=== PATIENT | female | born 1950 | race Caucasian/White ===

== ENCOUNTER 2024-09-19 19:02 | Inpatient (IN) | payer MEDICARE, OTHER, SELFPAY ==
[2024-09-19 14:26] LABS: ALT (SGPT) 28 U/L (0-35); AST (SGOT) 36 U/L (14-36); Albumin 4.1 g/dl (3.5-5.0); Alkaline Phosphatase 87 U/L (38-126); Blood Urea Nitrogen 57 mg/dl (7-17); Calcium 9.1 mg/dl (8.4-10.2); Carbon Dioxide 32 mmol/L (22-30); Chloride 94 mmol/L (98-107); Glucose 168 mg/dl (70-99); Potassium 5.1 mmol/L (3.5-5.1); Sodium 134 mmol/L (135-145); Total Bilirubin 0.8 mg/dl (0.2-1.3); Total Protein 6.4 g/dl (6.3-8.2); eGFR 33.42
[2024-09-19 14:35] LABS: Hematocrit 42.3 % (37.0-47.0); Hemoglobin 12.8 g/dL (12.0-16.0); Mean Corp Hgb Conc. 30.3 g/dL (33.0-37.0); Mean Corpuscular Hgb 29.3 pg (27.0-31.0); Mean Corpuscular Volume 96.8 fL (81.0-99.0); Mean Platelet Volume 12.3 fL (7.4-10.4); Platelet Count 222 10^3/uL (130-400); Red Blood Cell Count 4.37 10^6/uL (4.20-5.40); Red Cell Dist. Width 18.6 % (11.5-14.5)
[2024-09-19 14:36] LABS: White Blood Cell Count 44.8 10^3/uL (4.8-10.8)
[2024-09-19 14:43] LABS: Troponin I 0.137 ng/ml
[2024-09-19 14:51] VITALS: BP 103/67
[2024-09-19 15:00] VITALS: BP 114/78
--- NOTE | 2024-09-19 15:07 | ED.GENMED ---
History of Present Illness
<Ashish Ahmadi PA-C - Last Filed: 09/19/24 17:36>
General
Chief Complaint: Chest Pain
Source: patient
Exam Limitations: none
Time Seen by Provider: 09/19/24 14:41
History of Present Illness
History of Present Illness:
73-year-old female with history of COPD, CHF lung cancer requiring left lung removal presents with right-sided chest pain and shortness of breath. Pain is rated worse with deep breathing. Typically on 2 L of oxygen. She denies fever. No vomiting
or fever. She is on Eliquis. She has not missed any doses. She notes some leg swelling. She also notes she has been on 20 mg of prednisone daily. No measurable fever. No other complaints at this time
Phy Exam
<Ashish Ahmadi PA-C - Last Filed: 09/19/24 17:36>
Physical Exam
Physical Exam:
General: Well-developed female with increased work of breathing
HEENT: Normocephalic atraumatic
Heart: Regular rate and rhythm
Lungs: No breath sounds on the left side. No obvious wheeze on the right
Abdomen is soft nontender nondistended no guarding rebound normal bowel sounds
Extremities: Edema noted bilateral lower extremities
Skin is warm no rash
Scores
<Ashish Ahmadi PA-C - Last Filed: 09/19/24 17:36>
Heart Score for Chest Pain Patients
STEMI patient?: No
History: Slightly or Non-Suspicious
ECG: Normal
Age: >/= 65 years
Risk Factors: 1 or 2 Risk Factors
Troponin: >/= 3 x Normal Limit
Heart Score for Chest Pain Patients: 5
Heart Score Risk: 20.3% MACE over next 6 weeks
<Vishal Briones DO - Last Filed: 09/19/24 21:54>
Heart Score for Chest Pain Patients
Heart Score for Chest Pain Patients: 5
Heart Score Risk: 20.3% MACE over next 6 weeks
Course
<Ashish Ahmadi PA-C - Last Filed: 09/19/24 17:36>
Orders/Labs/Results
Orders:
Orders
09/19/24 13:40
ECG [Electrocardiogram (*1)] Urgent
Reason for Study: Chest Pain
EKG- Treatment ONCE
09/19/24 13:53
Complete Blood Count/With Diff Urgent
Comprehensive Metabolic Panel Urgent
Magnesium Urgent
Comment: ADD ON
NT-proBNP Urgent
Comment: ADD ON
Troponin I Urgent
09/19/24 14:59
CR Chest Portable - 1 View Urgent
Comment:
Reason For Exam: sob, chest pain
Reason Study Needs to be Portable: Patient Unstable
09/19/24 Dinner
Cholesterol Lowering
At Your Request: Full Participation
Fluid Restriction: 1200 mL/day (40 oz)
Cholesterol Lowering: Sodium, 2 Gram
09/19/24 15:27
Cefepime HCl [Maxipime] 2,000 mg IV NOW STA
Vancomycin [Vancocin] 2,000 mg 0.9% Sodium Chloride 500 ml [Nss] 500 ml IV NOW
09/19/24 15:37
COVID-19 Antigen Urgent
Source: Nasal Swab
Blood Culture Q30M
ZHAO Source: Blood/Venous
Specimen Description:
Influenza A+B Rapid Molecular Urgent
ZHAO Source: Nasal Swab
Specimen Description:
09/19/24 17:29
Lactic Acid Q4H
Comment: CANCEL 2nd LACTIC ACID IF 1st LACTIC ACID IS LESS THAN 2
09/19/24 17:58
Add On- LAB Urgent
Tests Added?: magnesium
09/19/24 18:38
Admit/Transfer Patient As Directed
Co-Sign Provider:
Level of Care: Inpatient admission
Assign to:: Telemetry
Physician / Group: florencia cisneros
Diagnosis: sepsis 2/2 RLL pna,R cp 2/2 pna, chf non isch miinjury
Reason for Telemetry: Chest Pain syndromes
Date to Stop Telemetry: 09/21/24
Time to Stop Telemetry: 11:00
Reason for Hospitalization: sepsis 2/2 RLL pna,R cp 2/2 pna, chf non isch miinjury
Expected length of stay greater than two midnights?: Yes
ELOS- Estimated Length of Stay in days: 5
I certify the patient meets the requirements for IP care: Yes
09/19/24 18:43
Code Status As Directed
Resuscitation Status: Full Code
09/19/24 18:50
PRN Pain Medication Management As Directed
May give lesser potent ordered pain med per pt: Yes
preference::
Protocol:: Medication orders for pain may be administered in a
manner that supports deferring to patient preference
when the pt is:
- Requesting an ordered lesser potent pain medication.
Least to most potent pain medications are defined
as: acetaminophen < NSAID < tramadol < opioids
(morphine, oxycodone, hydromorphone).
- Requesting a lesser dose of the same medication IF
ORDERED.
- Requesting a less intrusive route of administration
if both routes are prescribed by the provider (PO <
IV).
09/19/24 18:55
CARDIOLOGY CONSULT Routine
Consulting Provider: David Calle
Was physician already notified: Yes
Reason for consult: chf
09/19/24 19:05
Troponin I Urgent
Blood Culture Q30M
ZHAO Source: Blood/Venous
Specimen Description:
09/19/24 19:52
Acetaminophen [Tylenol] 650 mg PO Q4HPRN PRN
Albuterol [ProAIR HFA INHALER] 2 puff INH R Q4HPRN PRN
Bisacodyl [Dulcolax] 10 mg RECTAL [id number] PRN
Docusate W/Senna [Senokot-S] 1 tablet PO BIDPRN PRN
Ipratropium/Albuterol Sulfate [Duoneb] 3 ml INH R Q4HPRN PRN
Lorazepam [Ativan] 0.5 mg PO BIDPRN PRN
Ondansetron HCl [Zofran] 4 mg PO Q6HPRN PRN
Polyethylene Glycol Powder [Miralax] 17 grams PO DAILYPRN PRN
VANCOMYCIN Pharmacy to Dose [VANCOCIN Pharmacy to Dose] 1 each Pharmacy To Prepare [Call Pharmacy To Prepare] 0 ml IV PER PROTOCOL
09/19/24 19:52
VTE Contraindication Routine
VTE Mechanical Device Contraindication: Medical Contraindication
Pharmocologic Contraindication: Medical Contraindication
Comment: Patient on Eliquis 2.5 mg twice daily
Activity As Directed
Activity Level: With Assistance
Comment: Uses cane
Intake/ Output As Directed
Frequency: Per unit guidelines
Vital Signs As Directed
Frequency: Per unit guidelines
Weight As Directed
Frequency: Daily
O2 Therapy [RESP] Routine
Nasal Cannula Liter Flow: 2 LPM
Titrate/Wean O2 to maintain O2 sat greater than (%): 91
Special Instructions: Patient on chronic 2 L nasal cannula dependent
Pulse Ox/spot Check [RESP] Routine
Quantity: 1
Ot Eval And Treat Routine
Pt Eval And Treat Routine
Activity Level: With Assistance
09/19/24 19:55
Benzonatate [Tessalon Perles] 200 mg PO TIDPRN PRN
09/19/24 20:00
Apixaban [Eliquis] 2.5 mg PO BID
Baclofen [Lioresal] 5 mg PO BID
09/19/24 22:00
Nystatin Suspension [Mycostatin Oral Suspension] 5 ml PO QID
Pramipexole [Mirapex, Generic] 1 mg PO HS
Pramipexole [Mirapex] 0.25 mg PO HS
Pregabalin [Lyrica] 75 mg PO HS
09/20/24 00:00
EKG [Electrocardiogram (*1)] Urgent
Reason for Study: Chest Pain
Troponin I Urgent
09/20/24 04:00
Cefepime HCl [Maxipime] 1,000 mg IV Q12H
09/20/24 06:00
Echo 2D MMode Color/Doppler IN AM
Reason for Study: chf
Complete Blood Count/With Diff IN AM
Comprehensive Metabolic Panel IN AM
Vitamin B12 IN AM
09/20/24 08:00
Allopurinol [Zyloprim] 200 mg PO DAILY
Atorvastatin [Lipitor] 20 mg PO DAILY
Budesonide/Formoterol 160/4.5 [Symbicort 160/4.5 Mcg Inhaler] 2 puff INH R BID
Dapagliflozin [Farxiga] 10 mg PO DAILY
Famotidine [Pepcid] 20 mg PO DAILY
Furosemide [Lasix] 40 mg PO Q48H
Magnesium l-Lactate [Mag-Tab Sr] 84 mg PO BID
Montelukast Sodium [Singulair] 10 mg PO DAILY
Pantoprazole [Protonix] 40 mg PO DAILY
Prednisone [Deltasone] 20 mg PO DAILY
Pregabalin [Lyrica] 50 mg PO DAILY
Roflumilast [Daliresp] 500 mcg PO DAILY
Saccharomyces Boulardii [Florastor] 250 mg PO DAILY
Tiotropium [place] 2.5 Mcg [Spiriva Respimat 2.5 Mcg] 2 puff INH R DAILY
09/20/24 22:00
suvorexant [Belsomra] 10 mg PO HS
09/21/24 06:00
Complete Blood Count/With Diff IN AM
Comprehensive Metabolic Panel IN AM
09/21/24 08:00
Furosemide [Lasix] 80 mg PO Q48H
Prednisone [Deltasone] 10 mg PO DAILY
09/21/24 11:00
DC Protocol for Telemetry ONCE
09/22/24 06:00
Complete Blood Count/With Diff IN AM
Comprehensive Metabolic Panel IN AM
09/23/24 06:00
Complete Blood Count/With Diff IN AM
Comprehensive Metabolic Panel IN AM
Abnormal Lab Results
09/19/24
13:53
WBC 44.8 H* 10^3/uL
(4.8-10.8)
MCHC 30.3 L g/dL
(33.0-37.0)
RDW 18.6 H %
(11.5-14.5)
MPV 12.3 H fL
(7.4-10.4)
Abs Immat Gran (auto) 1.1 H 10^3/uL
(0-0.05)
Absolute Neuts (auto) 39.4 H 10^3/uL
(1.4-6.5)
Absolute Lymphs (auto) 0.8 L 10^3/uL
(1.2-3.4)
Absolute Monos (auto) 3.3 H 10^3/uL
(0.1-0.6)
Immature Gran % 2.4 H %
(0-0.5)
Neutrophils % 88.1 H %
(42.2-75.2)
Lymphocytes % 1.8 L %
(20.5-51.1)
Sodium 134 L mmol/L
(135-145)
Chloride 94 L mmol/L
(98-107)
Carbon Dioxide 32 H mmol/L
(22-30)
BUN 57 H mg/dl
(7-17)
Creatinine 1.6 H mg/dL
(0.6-1.0)
Glucose 168 H mg/dl
(70-99)
Magnesium 2.7 H mg/dl
(1.6-2.3)
Troponin I 0.137 H* ng/ml
09/19/24 13:53
09/19/24 13:53
Vital Signs
Initial and Last Documented VS:
Initial Vital Signs
Pulse Resp Pulse Ox
87 16 96
09/19/24 13:40 09/19/24 13:40 09/19/24 13:40
Last Documented Vital Signs
Temp Pulse Resp BP Pulse Ox
97.6 F 89 8 162/81 96
09/19/24 20:06 09/19/24 20:06 09/19/24 20:06 09/19/24 20:06 09/19/24 20:06
<Vishal Briones, DO - Last Filed: 09/19/24 21:54>
Orders/Labs/Results
Orders:
Orders
09/19/24 13:40
ECG [Electrocardiogram (*1)] Urgent
Reason for Study: Chest Pain
EKG- Treatment ONCE
09/19/24 13:53
Complete Blood Count/With Diff Urgent
Comprehensive Metabolic Panel Urgent
Magnesium Urgent
Comment: ADD ON
NT-proBNP Urgent
Comment: ADD ON
Troponin I Urgent
09/19/24 14:59
CR Chest Portable - 1 View Urgent
Comment:
Reason For Exam: sob, chest pain
Reason Study Needs to be Portable: Patient Unstable
09/19/24 Dinner
Cholesterol Lowering
At Your Request: Full Participation
Fluid Restriction: 1200 mL/day (40 oz)
Cholesterol Lowering: Sodium, 2 Gram
09/19/24 15:27
Cefepime HCl [Maxipime] 2,000 mg IV NOW STA
Vancomycin [Vancocin] 2,000 mg 0.9% Sodium Chloride 500 ml [Nss] 500 ml IV NOW
09/19/24 15:37
COVID-19 Antigen Urgent
Source: Nasal Swab
Blood Culture Q30M
ZHAO Source: Blood/Venous
Specimen Description:
Influenza A+B Rapid Molecular Urgent
ZHAO Source: Nasal Swab
Specimen Description:
09/19/24 17:29
Lactic Acid Q4H
Comment: CANCEL 2nd LACTIC ACID IF 1st LACTIC ACID IS LESS THAN 2
09/19/24 17:58
Add On- LAB Urgent
Tests Added?: magnesium
09/19/24 18:38
Admit/Transfer Patient As Directed
Co-Sign Provider:
Level of Care: Inpatient admission
Assign to:: Telemetry
Physician / Group: florencia cisneros
Diagnosis: sepsis 2/2 RLL pna,R cp 2/2 pna, chf non isch miinjury
Reason for Telemetry: Chest Pain syndromes
Date to Stop Telemetry: 09/21/24
Time to Stop Telemetry: 11:00
Reason for Hospitalization: sepsis 2/2 RLL pna,R cp 2/2 pna, chf non isch miinjury
Expected length of stay greater than two midnights?: Yes
ELOS- Estimated Length of Stay in days: 5
I certify the patient meets the requirements for IP care: Yes
09/19/24 18:43
Code Status As Directed
Resuscitation Status: Full Code
09/19/24 18:50
PRN Pain Medication Management As Directed
May give lesser potent ordered pain med per pt: Yes
preference::
Protocol:: Medication orders for pain may be administered in a
manner that supports deferring to patient preference
when the pt is:
- Requesting an ordered lesser potent pain medication.
Least to most potent pain medications are defined
as: acetaminophen < NSAID < tramadol < opioids
(morphine, oxycodone, hydromorphone).
- Requesting a lesser dose of the same medication IF
ORDERED.
- Requesting a less intrusive route of administration
if both routes are prescribed by the provider (PO <
IV).
09/19/24 18:55
CARDIOLOGY CONSULT Routine
Consulting Provider: David Calle
Was physician already notified: Yes
Reason for consult: chf
09/19/24 19:05
Troponin I Urgent
Blood Culture Q30M
ZHAO Source: Blood/Venous
Specimen Description:
09/19/24 19:52
Acetaminophen [Tylenol] 650 mg PO Q4HPRN PRN
Albuterol [ProAIR HFA INHALER] 2 puff INH R Q4HPRN PRN
Bisacodyl [Dulcolax] 10 mg RECTAL [id number] PRN
Docusate W/Senna [Senokot-S] 1 tablet PO BIDPRN PRN
Ipratropium/Albuterol Sulfate [Duoneb] 3 ml INH R Q4HPRN PRN
Lorazepam [Ativan] 0.5 mg PO BIDPRN PRN
Ondansetron HCl [Zofran] 4 mg PO Q6HPRN PRN
Polyethylene Glycol Powder [Miralax] 17 grams PO DAILYPRN PRN
VANCOMYCIN Pharmacy to Dose [VANCOCIN Pharmacy to Dose] 1 each Pharmacy To Prepare [Call Pharmacy To Prepare] 0 ml IV PER PROTOCOL
09/19/24 19:52
VTE Contraindication Routine
VTE Mechanical Device Contraindication: Medical Contraindication
Pharmocologic Contraindication: Medical Contraindication
Comment: Patient on Eliquis 2.5 mg twice daily
Activity As Directed
Activity Level: With Assistance
Comment: Uses cane
Intake/ Output As Directed
Frequency: Per unit guidelines
Vital Signs As Directed
Frequency: Per unit guidelines
Weight As Directed
Frequency: Daily
O2 Therapy [RESP] Routine
Nasal Cannula Liter Flow: 2 LPM
Titrate/Wean O2 to maintain O2 sat greater than (%): 91
Special Instructions: Patient on chronic 2 L nasal cannula dependent
Pulse Ox/spot Check [RESP] Routine
Quantity: 1
Ot Eval And Treat Routine
Pt Eval And Treat Routine
Activity Level: With Assistance
09/19/24 19:55
Benzonatate [Tessalon Perles] 200 mg PO TIDPRN PRN
09/19/24 20:00
Apixaban [Eliquis] 2.5 mg PO BID
Baclofen [Lioresal] 5 mg PO BID
09/19/24 22:00
Nystatin Suspension [Mycostatin Oral Suspension] 5 ml PO QID
Pramipexole [Mirapex, Generic] 1 mg PO HS
Pramipexole [Mirapex] 0.25 mg PO HS
Pregabalin [Lyrica] 75 mg PO HS
09/20/24 00:00
EKG [Electrocardiogram (*1)] Urgent
Reason for Study: Chest Pain
Troponin I Urgent
09/20/24 04:00
Cefepime HCl [Maxipime] 1,000 mg IV Q12H
09/20/24 06:00
Echo 2D MMode Color/Doppler IN AM
Reason for Study: chf
Complete Blood Count/With Diff IN AM
Comprehensive Metabolic Panel IN AM
Vitamin B12 IN AM
09/20/24 08:00
Allopurinol [Zyloprim] 200 mg PO DAILY
Atorvastatin [Lipitor] 20 mg PO DAILY
Budesonide/Formoterol 160/4.5 [Symbicort 160/4.5 Mcg Inhaler] 2 puff INH R BID
Dapagliflozin [Farxiga] 10 mg PO DAILY
Famotidine [Pepcid] 20 mg PO DAILY
Furosemide [Lasix] 40 mg PO Q48H
Magnesium l-Lactate [Mag-Tab Sr] 84 mg PO BID
Montelukast Sodium [Singulair] 10 mg PO DAILY
Pantoprazole [Protonix] 40 mg PO DAILY
Prednisone [Deltasone] 20 mg PO DAILY
Pregabalin [Lyrica] 50 mg PO DAILY
Roflumilast [Daliresp] 500 mcg PO DAILY
Saccharomyces Boulardii [Florastor] 250 mg PO DAILY
Tiotropium [place] 2.5 Mcg [Spiriva Respimat 2.5 Mcg] 2 puff INH R DAILY
09/20/24 22:00
suvorexant [Belsomra] 10 mg PO HS
09/21/24 06:00
Complete Blood Count/With Diff IN AM
Comprehensive Metabolic Panel IN AM
09/21/24 08:00
Furosemide [Lasix] 80 mg PO Q48H
Prednisone [Deltasone] 10 mg PO DAILY
09/21/24 11:00
DC Protocol for Telemetry ONCE
09/22/24 06:00
Complete Blood Count/With Diff IN AM
Comprehensive Metabolic Panel IN AM
09/23/24 06:00
Complete Blood Count/With Diff IN AM
Comprehensive Metabolic Panel IN AM
Abnormal Lab Results
09/19/24
13:53
WBC 44.8 H* 10^3/uL
(4.8-10.8)
MCHC 30.3 L g/dL
(33.0-37.0)
RDW 18.6 H %
(11.5-14.5)
MPV 12.3 H fL
(7.4-10.4)
Abs Immat Gran (auto) 1.1 H 10^3/uL
(0-0.05)
Absolute Neuts (auto) 39.4 H 10^3/uL
(1.4-6.5)
Absolute Lymphs (auto) 0.8 L 10^3/uL
(1.2-3.4)
Absolute Monos (auto) 3.3 H 10^3/uL
(0.1-0.6)
Immature Gran % 2.4 H %
(0-0.5)
Neutrophils % 88.1 H %
(42.2-75.2)
Lymphocytes % 1.8 L %
(20.5-51.1)
Sodium 134 L mmol/L
(135-145)
Chloride 94 L mmol/L
(98-107)
Carbon Dioxide 32 H mmol/L
(22-30)
BUN 57 H mg/dl
(7-17)
Creatinine 1.6 H mg/dL
(0.6-1.0)
Glucose 168 H mg/dl
(70-99)
Magnesium 2.7 H mg/dl
(1.6-2.3)
Troponin I 0.137 H* ng/ml
09/19/24 13:53
09/19/24 13:53
Vital Signs
Initial and Last Documented VS:
Initial Vital Signs
Pulse Resp Pulse Ox
87 16 96
09/19/24 13:40 09/19/24 13:40 09/19/24 13:40
Last Documented Vital Signs
Temp Pulse Resp BP Pulse Ox
97.6 F 89 8 162/81 96
09/19/24 20:06 09/19/24 20:06 09/19/24 20:06 09/19/24 20:06 09/19/24 20:06
Devanglt;Ashish Ahmadi PA-C - Last Filed: 09/19/24 17:36>
MDM/Problems Addressed
Differential Diagnosis Includes:
Patient with history of CHF, lung cancer requiring left lung removal COPD on a blood thinner presents with shortness of breath and right-sided pleuritic chest pain. She has been coughing.
Consider respiratory illness such as pneumonia or bronchitis for COPD flare versus ACS or PE but less likely to be PE secondary to anticoagulated state.
Portable chest x-ray ordered immediately after evaluating the patient which demonstrates opacity in the right lower lung suggestive of pneumonia. Patient is requiring 4 L of oxygen increased from a baseline of 2 L of oxygen. Review of labs
demonstrated leukocytosis with a white count of 44,000. Blood cultures and lactic acid ordered.
COVID and flu test pending. Patient is not currently receiving any treatment for lung cancer.
<Ashish Ahmadi PA-C - Last Filed: 09/19/24 17:36>
*Critical Care Note
Total Time (30-74mins, 75-104mins- exclusive of procedures): Not Applicable
<Ashish Ahmadi PA-C - Last Filed: 09/19/24 17:36>
Update Note
Update Note:
X-ray consistent with right middle and lower lobe pneumonia. Given increased oxygen demand leukocytosis elevated troponin will keep patient in hospital. Hospitalist made aware. Vancomycin and cefepime ordered
ED Attending Note
<Ashish Ahmadi PA-C - Last Filed: 09/19/24 17:36>
-
Portions of this chart may have been created with voice recognition software.� Occasional wrong word or��sound alike� substitutions may have occurred due to the inherent limitations of voice recognition software.
<Vishal Briones, - Last Filed: 09/19/24 21:54>
ED Attending Note
I performed the substantive portion of visit, reviewed & personally made and approve the management plan that is documented in note by myself or YOANA.: Yes
Discharge Plan
Departure
Patient Disposition: Admit
Date of Disposition: 09/19/24
Time of Disposition: 17:35
Presentation/result/management discussed w/ accepting MD/DO: Hospitalist
Discharge Problem:
Pneumonia
Interventions
Interventions:
*Risk Screen - Suicide Last Done: 09/19/24 21:32
*General Assessment Last Done: 09/19/24 17:03
*Neglect/Abuse Screening Last Done: 09/19/24 13:40
ED- Fall Risk Assessment Last Done: 09/19/24 17:03
*ED COVID-19 Vaccine History Last Done: 09/19/24 21:32
*Nursing Disposition Last Done: 09/19/24 19:40
ED- Cardiac Assessment Last Done: 09/19/24 17:03
Discharge Date and Time
Discharge Date/Time: 09/19/24 19:40
[2024-09-19 15:13] LABS: % Basophils 0.4 % (0-2); % Immature Granulocytes 2.4 % (0-0.5); % Lymphocytes 1.8 % (20.5-51.1); % Monocytes 7.3 % (1.7-9.3); % Neutrophils 88.1 % (42.2-75.2); Absolute Basophils 0.2 10^3/uL (0-0.2); Absolute Immature Granulocytes 1.1 10^3/uL (0-0.05); Absolute Lymphocytes 0.8 10^3/uL (1.2-3.4); Absolute Monocytes 3.3 10^3/uL (0.1-0.6); Absolute Neutrophils 39.4 10^3/uL (1.4-6.5); Nucleated Red Blood Cells % 0.1 %
[2024-09-19 15:25] VITALS: BMI 31.8
[2024-09-19 16:30] LABS: NT-proBNP 1750 pg/ml
[2024-09-19] MEDS: MAXIPIME 2000 MG IV (16:40)
[2024-09-19] MEDS: VANCOCIN 540 MG IV (16:55)
[2024-09-19 17:00] VITALS: BP 116/73
[2024-09-19 17:17] LABS: COVID-19 Antigen Negative (Negative)
--- NOTE | 2024-09-19 17:30 | HPS.HSE ---
Family Physician
-
Family Physician: Dre Jon
Chief Complaint
-
Shortness of breath, chest pain, cough, sore throat
History of Present Illness
73-year-old female complaining of right sided chest pain at rest 4/10 and with a deep breath 7 out of 10. She reports her shortness of breath feels worse over the past 2 to 3 days along with a nonproductive cough and sore throat with thrush to her
tongue and painful swallowing x 1 week. She was recently treated for radiation pneumonitis approximately 6 to 8 weeks ago at [facility] placed on high-dose steroids starting with 50 mg x 1 week 40 mg x 1 week 30 mg x 1 week to change
to 20 mg on 09/21/2024 then to decrease to 10 mg x 1 week and maintain. She also reports she had a 20 pound weight gain on steroids was 158 pounds approximately 6 to 8 weeks ago her Lasix was increased from 40 mg daily to alternating 40 mg
and 80 mg every other day. She is currently 81.5 kg which would be a 10 kg/21.3 LB weight gain from 6�8 weeks ago when she states she was 71.8 kg/158 LBS she reports pain is worse when she takes a deep breath. She has been on a tapering dose of
steroids starting 6 to 8 weeks ago with 50 mg x 1 week 40 mg in 1 week 30 mg x 1 week to decrease 10 mg by each week on Sundays. She is normally chronically on 10 mg of prednisone and on chronic 2 L nasal cannula. She denies fever, chills,
palpitations, cough, COELHO, orthopnea, abdominal pain, nausea, vomiting, diarrhea, urinary symptoms
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
oxygen, CAD status post cardiac stent 03/08/2023 [facility], Chronic CHF preserved EF, paroxysmal A-fib on Eliquis diagnosed February 2023 [facility], PACs, bradycardia 04/03/2023: HTN, orthostatic hypotension, gout, anxiety,
restless leg syndrome, chronic back pain, GERD, CKD 3, chronic anemia
Medical History
Past Medical History
Past Medical History: Reports Other
Additional Past Medical History:
hypertension
Lung cancer status post left pneumonectomy
COPD/ chronic respiratory failure on 2 L of oxygen
CAD status post cardiac stent 03/08/2023
Chronic CHF
Paroxysmal atrial fibrillation on Eliquis Dx March 18 [facility]
PACs, bradycardia 04/03/2023
GERD
CKD 3
gout
anxiety
restless leg syndrome
chronic back pain,
Past Surgical History: Reports None
Social History
Tobacco: Former Smoker
Alcohol: None
Drug: None
Personal: Single
Living: Alone
Family History
Family History: Not pertinent
Allergies / Home Medications
Allergies reflects when Allergies were last updated in [employer].
Home Medications with original date entered in [employer]
Allergy/Medication List:
Allergies
Allergy/AdvReac Type Severity Reaction Status Date / Time
amiodarone Allergy kidney and Verified 09/19/24 18:37
liver
functions
elevate
dofetilide Allergy prolonged Verified 09/19/24 18:37
qt
Iodinated Contrast Media Allergy Nausea / Verified 09/19/24 18:37
Vomiting/'pass
out'
levofloxacin [From Levaquin] Allergy Nausea Verified 09/19/24 13:45
Home Medications
allopurinol 100 mg tablet 200 mg PO DAILY Gout 03/30/23
atorvastatin 40 mg tablet 20 mg PO DAILY High Cholesterol 03/30/23
baclofen 5 mg tablet 5 mg PO BID Muscle Spasms 03/30/23
famotidine 20 mg tablet 20 mg PO DAILY Gastrointestinal Issue 03/30/23
ipratropium 0.5 mg-albuterol 3 mg (2.5 mg base)/3 mL nebulization soln 3 ml inhalation R Q4 PRN sob/wheezing 03/30/23
lorazepam 0.5 mg tablet 0.5 mg PO BIDPRN PRN anxiety 03/30/23
magnesium oxide 400 mg PO BID Electrolyte Repletion 03/30/23
omeprazole 40 mg capsule,delayed release 40 mg PO DAILY Gastrointestinal Issue 03/30/23
ondansetron HCl 4 mg tablet 4 mg PO Q6HPRN PRN nausea/vomitting 03/30/23
Saccharomyces boulardii 250 mg capsule (Florastor) 250 mg PO DAILY 09/19/24
albuterol sulfate 90 mcg/actuation aerosol inhaler 2 puff inhalation R Q4HPRN PRN wheezing 09/19/24
apixaban 2.5 mg tablet 2.5 mg PO BID 09/19/24
azithromycin 250 mg tablet 250 mg PO MOWEFR 09/19/24
benralizumab 30 mg/mL subcutaneous auto-injector (Fasenra Pen) 30 mg SC Q8W 09/19/24
benzonatate 200 mg capsule 200 mg PO TIDPRN PRN cough 09/19/24
calcium 600 mg (as carbonate)-vitamin D3 5 mcg (200 unit) tablet 1 tab PO DAILY 09/19/24
coenzyme Q10 200 mg/gram oral powder (H2Q CoQ10) 400 mg PO DAILY 09/19/24
dapagliflozin propanediol 10 mg tablet 10 mg PO DAILY 09/19/24
fluticasone furoate 200 mcg-vilanterol 25 mcg/dose inhalation powder (Breo Ellipta) 1 inh inhalation R DAILY 09/19/24
fluticasone propionate 50 mcg/actuation nasal spray,suspension 2 spray intranasal DAILY 09/19/24
furosemide 40 mg tablet 40 mg PO Q48H 09/19/24
furosemide 40 mg tablet 80 mg PO Q48H 09/19/24
ipratropium 20 mcg-albuterol 100 mcg/actuation mist for inhalation (Combivent Respimat) 1 puff inhalation R Q4HPRN PRN sob/wheezing 09/19/24
montelukast 10 mg tablet 10 mg PO DAILY 09/19/24
pramipexole 0.25 mg tablet 0.25 mg PO HS 09/19/24
pramipexole 1 mg tablet 1 mg PO HS 09/19/24
prednisone 10 mg tablet 10 mg PO DAILY 09/19/24
pregabalin 25 mg capsule 50 mg PO DAILY 09/19/24
pregabalin 25 mg capsule 75 mg PO HS 09/19/24
roflumilast 500 mcg tablet 500 mcg PO DAILY 09/19/24
spironolactone 25 mg tablet 25 mg PO DAILY 09/19/24
sulfamethoxazole 800 mg-trimethoprim 160 mg tablet 1 tab PO MOWEFR 09/19/24
suvorexant 10 mg tablet (Belsomra) 10 mg PO QPM 09/19/24
tiotropium bromide 2.5 mcg/actuation mist for inhalation (Spiriva Respimat) 2 puff inhalation R DAILY 09/19/24
Review of Systems
-
History Source: Patient
A 12 point ROS was completed and negative except as noted: Yes
Constitutional: Denies Fever, Fatigue or Chills
EENT: Reports Sore Throat and Other (Oral thrush)
Respiratory: Reports Cough (Nonproductive) and Trouble Breathing
Cardiac: Reports Chest Pain (Right side at rest and with inspiration); Denies Diaphoresis or Palpitations
Abdomen/GI: Denies Abdominal Pain, Nausea, Vomiting, Diarrhea, Constipated, Bloody Stools or Black Stools
: Denies Dysuria, Frequency, Flank Pain, Incontinence, Difficulty Voiding, Urgency or Dark Urine
Musculoskeletal: Reports Edema (+2 bilateral lower legs); Denies Joint Pain
Skin: Denies Itching or Rash
Neurological: Reports Weakness (Generalized); Denies Dizzy or Headache
Endocrine: Reports No Symptoms
Hematologic/Lymphatic: Reports No Symptoms
Psych: Reports Calm
Physical Exam
Vital Signs
Vital Signs
Pulse Resp BP Pulse Ox
82 23 116/73 95
09/19/24 17:00 09/19/24 17:00 09/19/24 17:00 09/19/24 17:03
Physical Exam
General: Conversant and Obese; No Fever or Chills
HEENT: NormoCephalic, Anicteric, PERRLA, [place] Conjunctivae, No Ptosis, Oxygen (2 L nasal cannula) and Other (Thrush is present to tongue); No Pharyngeal Erythema
Respiratory: Clear and Wheezes (Expiratory upper airways); No Rales or Rhonchi
Cardiac: S1/S2, Regular Rhythm and Peripheral Edema (+1-2 bilateral lower legs); No Murmur, Rub or Gallop
Breast: Deferred by me
GI: Soft, Non Tender, Non Distended and No Hepatosplenomegaly
Rectal: Deferred by Provider
Genito-urinary: Deferred by me
Musculoskeletal: No Clubbing, No Cyanosis, Edema, Left Lower Extremity (+2) and Edema, Right Lower Extremity (+2); No Edema, Left Upper Extremity or Edema, Right Upper Extremity
Skin: Warm and Dry; No Rash or Jaundice
Neuro: AO x 3, No Motor Deficits, Nonfocal/grossly intact, Cranial Nerves Intact and No Sensory Deficits; No Slurred Speech, Facial Droop, Tremors or Sedated
Psych: Calm
Laboratory Results
-
09/19/24 13:53
09/19/24 13:53
Laboratory Results
Total Bilirubin 0.8 mg/dl (0.2-1.3) 09/19/24 13:53
AST 36 U/L (14-36) 09/19/24 13:53
ALT 28 U/L (0-35) 09/19/24 13:53
Alkaline Phosphatase 87 U/L (38-126) 09/19/24 13:53
Troponin I 0.137 ng/ml H* 09/19/24 13:53
Data Reviewed
-
Diagnostic Radiology: Report Reviewed by me
Lab Data: Labs Reviewed by me
Impression/Plan
-
Impression/plan:
Admit to telemetry
#Sepsis secondary to Right lower lobe pneumonia on chronic steroids/maintenance antibiotics
#Chronic COPD
#Chronic respiratory failure on 2 L nasal cannula oxygen
WBC 44.8 With left shift, BP 103/67, HR 82, 95% 2 L nasal cannula
Flu, COVID-negative
-Continue albuterol inhaler, Breo Ellipta, Combivent every 4 as needed
- HOLD Chronic Azithromycin to 50 mg Sunday and Bactrim 1 tab p.o. Sunday
-Continue Roflumilast 500 mcg p.o. daily, montelukast 10 mg daily, Fasenra 30 mg SQ every 8 weeks
-Continue prednisone 30 mg tomorrow 09/18/2024 then continue 20 mg daily x 1 week then maintain 10 mg bryanna
-Continue cefepime, IV vancomycin
-Follow CBC, CMP, sputum culture, -Lactic acid pending, blood cultures x 2, sputum culture
-Follow QTc on telemetry
#Right upper lung CA Dx February 2024 unknown type status post radiation x 5 sessions completed May 2024
#Status post radiation pneumonitis approximate 6 to 8 weeks ago treated at [facility] with steroid regimen starting at 50 mg
#Lung cancer status post LEFT pneumonectomy-NON SMALL CELL years ago per patient
-Will continue her current prednisone regimen -Continue prednisone 30 mg tomorrow 09/18/2024 then continue 20 mg daily x 1 week then maintain 10 mg daily
-Patient follows with oncology [facility] Dr. Capellan
#Right sided chest pain 2/2 nonischemic myocardial injury, right sided pneumonia
#CAD status post cardiac stent 03/08/2023
-Continue Eliquis 2.5 mg twice daily, atorvastatin 20 mg daily
Troponin 0.137 will trend
#SAIRTA on CKD 3B
Creat 1.6 prior 1.2 on 04/04/2023
-Will monitor BMP in setting of Lasix
#Oral thrush with odynophagia concern for esophageal Lily with history of due to chronic steroid/inhalers
-Nystatin swish and swallow
-Patient denies difficulty swallowing liquids and food does not cough
# Hypotension/hypertension
BP 103/67
-Hold spironolactone 25 mg daily
-Monitor blood pressure with Lasix
# Acute on chronic CHF unspecified type
I/O, daily weights, BNP 1750 prior 1997 in March 2023
Patient currently 81.5 kg/179 LBS> self-reports 71 kg / 158 pounds approximately 6 to 8 weeks ago = 21.3 pound weight gain in 6 to 8 weeks
-Continue furosemide 80 mg p.o. every 48 H alternating with furosemide 40 mg p.o. every 48 H will hold for SBP <110 this was adjusted approximately 6 weeks ago from baseline Lasix 40 mg daily due to weight gain
-Continue Farxiga 10 mg daily with hold parameters
-Check 2D echo
-Healthy heart fluid restrict 40 ounce daily
-Consult CBC cardiology patient follows with Dr. Radha Gong cardiology at [facility]
#Chronic anemia-normocytic
Hgb 12.8
Paroxysmal atrial fibrillation Dx February 2023 [facility]
-Continue Eliquis 2.5 mg twice daily
PACs, bradycardia 04/03/2023
#GERD
Continue Pepcid 20 mg daily, omeprazole 40 mg daily
#Gout
-Continue allopurinol 200 mg daily
# anxiety
-Continue lorazepam 0.5 mg twice daily as needed
#Restless leg syndrome
-Continue pramipexole 1.25 mg p.o. at bedtime, Lyrica 50 mg daily
#Chronic back pain
#Chronic neuropathy bilateral feet
-Continue Lyrica 75 mg p.o. at bedtime, 50 mg p.o. daily
#Hypomagnesemia
Continue Mag-Ox 400 mg twice daily, check mag level
Class I obesity�BMI 31.8
Affects all aspects of care
Weight loss recommended
DVT prophylaxis
Continue MANAGER LVN Eliquis 2.5 mg twice daily
Full code per patient states sister Stephany is one of her emergency contact
[2024-09-19 17:47] LABS: Lactic Acid 1.5 mmol/L (0.7-2.0)
[2024-09-19 18:30] LABS: Magnesium 2.7 mg/dl (1.6-2.3)
--- NOTE | 2024-09-19 18:43 | W.PN.UPDATE ---
Update Note
Progress Note Update
This is an addendum to the H&P written by Carmela Abreu on 09/19/2024. Patient seen and examined independently with HOMICIDE SQUAD SERGEANT.
73-year-old female past medical history of lung cancer status post left pneumonectomy and completed radiation in May, COPD on chronic preventative Bactrim/azithromycin, chronic respiratory insufficiency on 2 L oxygen, CAD status post stent,
CHF, orthostatic hypotension, atrial fibrillation on Eliquis, gout, anxiety, restless leg syndrome, chronic back pain, GERD, prior esophageal Lily, presenting with right-sided chest pain with inspiration and shortness of breath with dry cough,
sore throat and lower extremity swelling. No fever. No vomiting.
She is currently being treated with prednisone for radiation pneumonitis developed over the past 6 to 8 weeks. She has had weight gain.
Respiratory rate of 23.
Oral thrush on examination without dysphagia.
Labs show leukocytosis of 44. Troponin of 0.137. EKG shows normal sinus rhythm, cardiac BNP of 1700. Creatinine of 1.6 near baseline.
Chest x-ray shows moderate new interstitial pneumonia in the right middle lobe and right lower lobe. COVID and flu negative.
Patient with sepsis secondary to right-sided pneumonia. Check sputum culture. Vancomycin/Zosyn. Hold IV fluids and continue Lasix at home dosage.
Nonischemic myocardial injury as chest pain corresponds with Pneumonia anatomically. Trend troponins. Check echocardiogram. Consult cardiology.
Nystatin swish and swallow for thrush.
[2024-09-19 19:45] LABS: Troponin I 0.097 ng/ml
[2024-09-19 20:06] VITALS: BP 162/81; BMI 31.2
--- NOTE | 2024-09-19 20:38 | PHA.VAN.IN ---
Assessment
- Assessment
Renal Function: Appears elevated from baseline (04/04/23 BASELINE SCR: 1.2)
Concomitant Antimicrobials: CEFEPIME
- Previous Dosing Experience
Previous Regimen: NONE
Plan
- Plan
Initial / Loading Dose: 2GM
Maintenance Regimen: DOSING BY RANDOM LEVELS
Monitoring: RANDOM VANCOMYCIN LEVEL 09/20/24 AM
Pharmacokinetics Vancomycin I
- -
Patient Age: 73
Patient Sex: Female
Vancomycin Day #: 1
Indication: Pulmonary/Respiratory (SEPSIS)
Requesting Provider: CHEMA
Height / Weight:
Height 5 ft 3 in
Actual Weight 79.861 kg
Pertinent Past Medical History: LUNG CA
- Vital Signs / Lab Results
Temp Pulse Resp BP Pulse Ox
97.6 F 89 8 162/81 96
09/19/24 20:06 09/19/24 20:06 09/19/24 20:06 09/19/24 20:06 09/19/24 20:06
Lab Results - Hematology
09/19/24
13:53
WBC 44.8 H*
Lab Results - Chemistry
09/19/24
13:53
BUN 57 H
Creatinine 1.6 H
Albumin 4.1
09/19/24 09/19/24
17:29 19:15
Lactic Acid 1.5 Cancelled
Microbiology Results
09/19/24 15:37 Influenza Types A & B (BARI) - Final
Nasal Swab Negative for Influenza A & B, NAAT
Negative results must be combined with clinical observations
and patient history.
Nucleic Acid Amplification test (NAAT)performed on the
[employer] platform.
[2024-09-19] MEDS: LIORESAL 5 MG PO (20:40)
[2024-09-19] MEDS: ELIQUIS 2.5 MG PO (20:40)
[2024-09-19] MEDS: LYRICA 75 MG PO (21:23)
[2024-09-19] MEDS: MIRAPEX, GENERIC 1 MG PO (21:23)
[2024-09-19] MEDS: MIRAPEX 0.25 MG PO (21:23)
[2024-09-19] MEDS: MYCOSTATIN ORAL SUSPENSION 5 ML PO (21:24)
[2024-09-19] MEDS: TYLENOL 650 MG PO (22:12)
[2024-09-20] VITALS (8 sets, daily range): BP systolic 129–152; BP diastolic 57–82; PULSE 85–87; O2SAT 95; BMI 31.2
[2024-09-20 01:08] LABS: Troponin I 0.073 ng/ml
[2024-09-20] MEDS: STERILE WATER FOR INJECTION 10 ML IV ×2 (04:13→16:00)
[2024-09-20] MEDS: MAXIPIME 1000 MG IV ×2 (04:14→16:00)
[2024-09-20] MEDS: SPIRIVA RESPIMAT 2.5 MCG 2 PUFF INH (07:36)
[2024-09-20] MEDS: SYMBICORT 160/4.5 MCG INHALER 2 PUFF INH ×2 (07:36→19:33)
--- NOTE | 2024-09-20 08:54 | CON.CAR ---
Addendum entered and electronically signed by David Calle MD 09/20/24 12:26:
I saw and examined the patient.
The GEOLOGICAL ENGINEERING TEACHER's note was reviewed and I agree with the note.
Comment: 73-year-old female (follows at [facility]), with paroxysmal atrial fibrillation (on apixaban), coronary artery disease (PCI 02/2023), CKD3a, lung cancer status post left pneumonectomy and XRT to right upper lung, chronic heart failure
(type unknown), hypertension, and dyslipidemia who presented with a chief complaint of shortness of breath. She feels unwell and that she has extra fluid in her.
- IV lasix 40 mg
- Abx for PNA
Original Note:
Consultation
Consultation Request
Date/Time Consultation Requested: 09/19/2024 19:00
Date/Time Consultation Performed: 09/20/2024 09:00
Requesting Provider: ANA Joshua
Performing Provider: ANA Barone for Dr. Calle
Reason for Consultation: CHF
Medical History
-
Chief Complaint: Shortness of breath
History of Present Illness:
Darcie Macdonald is a 73-year-old female (follows at [facility]), with paroxysmal atrial fibrillation (on apixaban), coronary artery disease (PCI 02/2023), CKD3a, lung cancer status post left pneumonectomy and XRT to right upper lung, chronic
heart failure (type unknown), hypertension, and dyslipidemia who presented with a chief complaint of shortness of breath. She endorsed associated cough, sore throat, and chest pain. She was recently treated for radiation pneumonitis approximately
8 weeks ago at [facility] with high-dose steroids. She endorses a 20 pound weight gain while on steroids. Her furosemide was increased from 40 mg daily to 40 mg then 80 mg on alternating days. She was diagnosed with sepsis. Cardiology was consulted
for heart failure and abnormal troponin. At the time of this consultation she is not having any chest pain nor dizziness. She reports she is short of breath. She is having right-sided shoulder pain which has been ongoing for several days.
Past Medical History
Past Medical History: Arrhythmias (Paroxysmal atrial fibrillation [on apixaban]), CAD (PCI 2022), Cancer (Lung cancer status post left pneumonectomy), CHF, COPD (With chronic hypoxic respiratory failure on supplemental oxygen) and Renal Failure
(CKD3a)
Past Surgical History: Other (Lobectomy)
Social History
Tobacco: Former Smoker
Employment: Retired
Family History
Family History: Reviewed & Not Pertinent
Allergies / Home Medications
Allergy/AdvReac Type Severity Reaction Status Date / Time
amiodarone Allergy kidney and Verified 09/19/24 18:37
liver
functions
elevate
dofetilide Allergy prolonged Verified 09/19/24 18:37
qt
Iodinated Contrast Media Allergy Nausea / Verified 09/19/24 18:37
Vomiting/'pass
out'
levofloxacin [From Levaquin] Allergy Nausea Verified 09/19/24 13:45
�Medication �Instructions �Recorded �Confirmed �Type
allopurinol 100 mg tablet 200 mg PO DAILY Gout 03/30/23 09/19/24 History
atorvastatin 40 mg tablet 20 mg PO DAILY High Cholesterol 03/30/23 09/19/24 History
baclofen 5 mg tablet 5 mg PO BID Muscle Spasms 03/30/23 09/19/24 History
famotidine 20 mg tablet 20 mg PO DAILY Gastrointestinal 03/30/23 09/19/24 History
Issue
ipratropium 0.5 mg-albuterol 3 mg 3 ml inhalation R Q4 PRN 03/30/23 09/19/24 History
(2.5 mg base)/3 mL nebulization sob/wheezing
soln
lorazepam 0.5 mg tablet 0.5 mg PO BIDPRN PRN anxiety 03/30/23 09/19/24 History
magnesium oxide 400 mg PO BID Electrolyte Repletion 03/30/23 09/19/24 History
omeprazole 40 mg capsule,delayed 40 mg PO DAILY Gastrointestinal 03/30/23 09/19/24 History
release Issue
ondansetron HCl 4 mg tablet 4 mg PO Q6HPRN PRN nausea/vomitting 03/30/23 09/19/24 History
Saccharomyces boulardii 250 mg 250 mg PO DAILY 09/19/24 09/19/24 History
capsule (Florastor)
albuterol sulfate 90 mcg/actuation 2 puff inhalation R Q4HPRN PRN 09/19/24 09/19/24 History
aerosol inhaler wheezing
apixaban 2.5 mg tablet 2.5 mg PO BID 09/19/24 09/19/24 History
azithromycin 250 mg tablet 250 mg PO MOWEFR 09/19/24 09/19/24 History
benralizumab 30 mg/mL subcutaneous 30 mg SC Q8W 09/19/24 09/19/24 History
auto-injector (Fasenra Pen)
benzonatate 200 mg capsule 200 mg PO TIDPRN PRN cough 09/19/24 09/19/24 History
calcium 600 mg (as 1 tab PO DAILY 09/19/24 09/19/24 History
carbonate)-vitamin D3 5 mcg (200
unit) tablet
coenzyme Q10 200 mg/gram oral 400 mg PO DAILY 09/19/24 09/19/24 History
powder (H2Q CoQ10)
dapagliflozin propanediol 10 mg 10 mg PO DAILY 09/19/24 09/19/24 History
tablet
fluticasone furoate 200 1 inh inhalation R DAILY 09/19/24 09/19/24 History
mcg-vilanterol 25 mcg/dose
inhalation powder (Breo Ellipta)
fluticasone propionate 50 2 spray intranasal DAILY 09/19/24 09/19/24 History
mcg/actuation nasal
spray,suspension
furosemide 40 mg tablet 40 mg PO Q48H 09/19/24 09/19/24 History
furosemide 40 mg tablet 80 mg PO Q48H 09/19/24 09/19/24 History
ipratropium 20 mcg-albuterol 100 1 puff inhalation R Q4HPRN PRN 09/19/24 09/19/24 History
mcg/actuation mist for inhalation sob/wheezing
(Combivent Respimat)
montelukast 10 mg tablet 10 mg PO DAILY 09/19/24 09/19/24 History
pramipexole 0.25 mg tablet 0.25 mg PO HS 09/19/24 09/19/24 History
pramipexole 1 mg tablet 1 mg PO HS 09/19/24 09/19/24 History
prednisone 10 mg tablet 10 mg PO DAILY 09/19/24 09/19/24 History
pregabalin 25 mg capsule 50 mg PO DAILY 09/19/24 09/19/24 History
pregabalin 25 mg capsule 75 mg PO HS 09/19/24 09/19/24 History
roflumilast 500 mcg tablet 500 mcg PO DAILY 09/19/24 09/19/24 History
spironolactone 25 mg tablet 25 mg PO DAILY 09/19/24 09/19/24 History
sulfamethoxazole 800 1 tab PO MOWEFR 09/19/24 09/19/24 History
mg-trimethoprim 160 mg tablet
suvorexant 10 mg tablet (Belsomra) 10 mg PO QPM 09/19/24 09/19/24 History
tiotropium bromide 2.5 2 puff inhalation R DAILY 09/19/24 09/19/24 History
mcg/actuation mist for inhalation
(Spiriva Respimat)
Review of Systems
-
History Source: Patient
All other systems: Negative unless noted
Constitutional: Fatigue
EENT: No Symptoms
Respiratory: Cough and Trouble Breathing
Cardiac: No Symptoms
Abdomen/GI: No Symptoms
: No Symptoms
Musculoskeletal: No Symptoms
Skin: No Symptoms
Neurological: No Symptoms
Endocrine: No Symptoms
Hematologic/Lymphatic: No Symptoms
Physical Exam
Vital Signs
Temp Pulse Resp BP Pulse Ox
97.6 F 76 18 132/57 96
09/20/24 07:50 09/20/24 07:50 09/20/24 07:50 09/20/24 07:50 09/20/24 07:50
Lab Results
Troponin I 0.073 ng/ml H* 09/20/24 00:23
Iva-G-Xjzzbbjvhis Pept Cancelled 09/19/24 15:37
Physical Exam
General: Well Nourished and No Apparent Distress
HEENT: Normocephalic, Anicteric and Moist Mucous Membranes
Respiratory: Crackles and Accessory Resp Muscle Use
Cardiac: S1/S2, Regular Rhythm and Peripheral Edema (+1 B/L LE)
Breast: Deferred by me
GI: Soft, Non Tender, Non Distended and Normal Bowel Sounds
Rectal: Deferred by Provider
Musculoskeletal: No Clubbing and No Cyanosis
Skin: Warm and Dry
Neuro: AO x 3
Hematologic/Lymphatic: No Lymphadenopathy
Psych: Calm
Impression / Plan
-
IMPRESSION/PLAN: 73F with paroxysmal atrial fibrillation (on apixaban), coronary artery disease (PCI 02/2023), CKD3a, lung cancer status post left pneumonectomy and XRT to right upper lung, chronic heart failure (type unknown), hypertension, and
dyslipidemia who presented with a chief complaint of shortness of breath.
Primary Tumbler Plater: [facility]
Sepsis, in the setting of RLL PNA, with underlying COPD & chronic hypoxic respiratory failure on supplemental oxygen - per primary
Abnormal troponin, likely nonischemic myocardial injury in the setting of acute illness (sepsis)
-Peak troponin on admission, 0.137
-Chest pain-free with a stable EKG
Heart failure, presumed HFpEF, acute
-Compared to prior admission 03/2023 her weight is up approximately 7 kg
-Hold oral furosemide, furosemide 40 mg IV x 1 this afternoon, this requires intensive monitoring given her SARITA
-Trend daily weight, I/O, and BMP with diuresis
-Heart failure education
-Echocardiogram on Sunday if respiratory status is stable
Paroxysmal atrial fibrillation
-In sinus
-Oral Anticoagulation: Apixaban 2.5 mg twice daily, appropriate dosing for her weight/renal function/age will be 5 mg twice daily, continue current dosing per her primary operations engineer
-[id number]: score at least 5 (Heart failure, HTN, age 75 or more, female gender)
Lung cancer
-Left pneumonectomy in the setting of an SCC
-Recent XRT to RUL status post radiation pneumonitis
-Follows at [facility]
CAD
-Stable without chest pain
-On single agent apixaban
SARITA on CKD3b - improving
Hypertension, with hypotension in the setting of sepsis,
SUBJECTIVE:
As above. Records requested.
[2024-09-20] MEDS: ZYLOPRIM 200 MG PO (08:58)
[2024-09-20] MEDS: MIRALAX 17 GRAMS PO (08:58)
[2024-09-20] MEDS: MYCOSTATIN ORAL SUSPENSION 5 ML PO ×4 (08:58→21:43)
[2024-09-20] MEDS: FLORASTOR 250 MG PO (08:58)
[2024-09-20] MEDS: SENOKOT-S 1 TABLET PO (08:58)
[2024-09-20] MEDS: DELTASONE 20 MG PO (08:59)
[2024-09-20] MEDS: LIORESAL 5 MG PO ×2 (08:59→20:38)
[2024-09-20] MEDS: FARXIGA 10 MG PO (08:59)
[2024-09-20] MEDS: LYRICA 50 MG PO (08:59)
[2024-09-20] MEDS: DALIRESP 500 MCG PO (08:59)
[2024-09-20] MEDS: TYLENOL 650 MG PO (08:59)
[2024-09-20] MEDS: PEPCID 20 MG PO (08:59)
[2024-09-20] MEDS: PROTONIX 40 MG PO (08:59)
[2024-09-20] MEDS: MAG-TAB SR 84 MG PO ×2 (08:59→20:38)
[2024-09-20] MEDS: ELIQUIS 2.5 MG PO ×2 (09:00→20:38)
[2024-09-20] MEDS: SINGULAIR 10 MG PO (09:00)
[2024-09-20] MEDS: LIPITOR 20 MG PO (09:00)
[2024-09-20] MEDS: LASIX 40 MG PO (09:00)
[2024-09-20 09:23] LABS: Hematocrit 39.6 % (37.0-47.0); Hemoglobin 12.1 g/dL (12.0-16.0); Mean Corp Hgb Conc. 30.6 g/dL (33.0-37.0); Mean Corpuscular Hgb 29.7 pg (27.0-31.0); Mean Corpuscular Volume 97.1 fL (81.0-99.0); Mean Platelet Volume 12.5 fL (7.4-10.4); Platelet Count 186 10^3/uL (130-400); Red Blood Cell Count 4.08 10^6/uL (4.20-5.40); Red Cell Dist. Width 18.5 % (11.5-14.5); White Blood Cell Count 24.8 10^3/uL (4.8-10.8)
[2024-09-20 09:39] LABS: Vancomycin Random 15.7 ug/ml
--- NOTE | 2024-09-20 09:44 | PHA.VAN.FU ---
Vancomycin Assessment / Plan
- Assessment
Renal Function: SCR Increasing
WBC's are: Trending Down
In the past 24 hrs, patient has been: Afebrile
Concomitant Antimicrobials: CEFEPIME
- Assessment - Therapeutic Drug Monitoring
Random Level: 15.7
- Dosing Plan
Dosing by Level: Hold off on dosing today
- Monitoring Plan
Random Level: 09/21 IN AM
- Follow Up
Pharmacy will continue to follow.
Vancomycin Follow UP
- -
Patient Age: 73
Patient Sex: Female
Vancomycin Day #: 2
Indication: Pulmonary/Respiratory (SEPSIS)
Requesting Provider: CHEMA
Height / Weight:
Height 5 ft 3 in
Actual Weight 79.861 kg
Pertinent Past Medical History: LUNG CA
- Vital Signs / Lab Results
Temp Pulse Resp BP Pulse Ox
97.6 F 76 18 132/57 96
09/20/24 07:50 09/20/24 07:50 09/20/24 07:50 09/20/24 07:50 09/20/24 08:55
Lab Results - Hematology
09/19/24 09/20/24
13:53 08:09
WBC 44.8 H* 24.8 H
Lab Results - Chemistry
09/19/24
13:53
BUN 57 H
Creatinine 1.6 H
Albumin 4.1
09/19/24 09/19/24
17:29 19:15
Lactic Acid 1.5 Cancelled
Microbiology Results
09/19/24 15:37 Influenza Types A & B (BARI) - Final
Nasal Swab Negative for Influenza A & B, NAAT
Negative results must be combined with clinical observations
and patient history.
Nucleic Acid Amplification test (NAAT)performed on the
[employer] platform.
Therapeutic Drug Monitoring
Random Vancomycin 15.7 ug/ml 09/20/24 08:09
[2024-09-20 09:48] LABS: % Basophils 0.2 % (0-2); % Eosinophils 0.1 % (0-6); % Immature Granulocytes 0.7 % (0-0.5); % Lymphocytes 2.5 % (20.5-51.1); % Monocytes 5.9 % (1.7-9.3); % Neutrophils 90.6 % (42.2-75.2); Absolute Basophils 0.1 10^3/uL (0-0.2); Absolute Immature Granulocytes 0.2 10^3/uL (0-0.05); Absolute Lymphocytes 0.6 10^3/uL (1.2-3.4); Absolute Monocytes 1.5 10^3/uL (0.1-0.6); Absolute Neutrophils 22.5 10^3/uL (1.4-6.5); Nucleated Red Blood Cells % 0 %
--- NOTE | 2024-09-20 10:08 | W.PN.HOSP.TC ---
Today's Communication/Plan
-
Cardiology consult pending. Troponin appears to have peaked. MRSA found on nose.
Assessment / Plan
Assessment / Plan
73-year-old woman with right sided chest pain at rest 4/10 and with a deep breath 7 out of 10, over the past 2 to 3 days along with a nonproductive cough and sore throat with thrush to her tongue and painful swallowing x 1 week.
Recently treated for radiation pneumonitis, 6 to 8 weeks ago at [facility]
placed on high-dose steroids starting with 50 mg x 1 week 40 mg x 1 week 30 mg x 1 week to change to 20 mg on 09/21/2024 then to decrease to 10 mg x 1 week and maintain.
20 pound weight gain on steroids was 158 pounds approximately 6 to 8 weeks ago
Lasix was increased from 40 mg daily to alternating 40 mg and 80 mg every other day.
pain is worse when she takes a deep breath.
Found to have probable sepsis from interstitial PNA
1. Probable Sepsis likely secondary to Right lower lobe pneumonia. Note that he is on chronic steroids/maintenance antibiotics, which may explain part of high WBC.
complicated by
Chronic COPD
Chronic respiratory failure on 2 L nasal cannula oxygen
Notable findings
WBC 44.8 With left shift, BP 103/67, HR 82, 95% 2 L nasal cannula
Flu, COVID-negative
-Continue albuterol inhaler, Breo Ellipta, Combivent every 4 as needed
- HOLD Chronic Azithromycin to 50 mg Sunday and Bactrim 1 tab p.o. Sunday
-Continue Roflumilast 500 mcg p.o. daily, montelukast 10 mg daily, Fasenra 30 mg SQ every 8 weeks
-Continue prednisone 30 mg tomorrow 09/18/2024 then continue 20 mg daily x 1 week then maintain 10 mg bryanna
-Continue IV cefepime, IV vancomycin
-Follow CBC, CMP, sputum culture, -Lactic acid pending, blood cultures x 2, sputum culture
-Follow QTc on telemetry
2. Right sided chest pain, with elevated troponin and right sided pneumonia
CAD status post cardiac stent 03/08/2023
Cardiology consulted
Question: benefit of ASA?
Is chest pain cardiac?
-Continue Eliquis 2.5 mg twice daily, atorvastatin 20 mg daily
-trend Troponin 0.137 --> now 0.073
3. Right upper lung CA Dx February 2024 unknown type status post radiation x 5 sessions completed May 2024
Status post radiation pneumonitis approximate 6 to 8 weeks ago treated at [facility] with steroid regimen starting at 50 mg
Lung cancer status post LEFT pneumonectomy-NON SMALL CELL years ago per patient
-Will continue her current prednisone regimen -Continue prednisone 30 mg tomorrow 09/18/2024 then continue 20 mg daily x 1 week then maintain 10 mg daily
-Patient follows with oncology [facility] Dr. Capellan
4. SARITA on CKD 3B, Creat 1.6 prior 1.2 on 04/04/2023
-Will monitor BMP in setting of Lasix
5. Oral thrush with odynophagia concern for esophageal Lily with history of due to chronic steroid/inhalers
-Nystatin swish and swallow
-Patient denies difficulty swallowing liquids and food does not cough
6. Hypotension/hypertension, BP 103/67 --> 132/57
-continue to Hold spironolactone 25 mg daily
-Monitor blood pressure with Lasix
7. Acute on chronic CHF unspecified type, I/O, daily weights, BNP 1750 prior 1997 in March 2023
Patient currently 81.5 kg/179 LBS> self-reports 71 kg / 158 pounds approximately 6 to 8 weeks ago = 21.3 pound weight gain in 6 to 8 weeks
-Continue furosemide 80 mg p.o. every 48 H alternating with furosemide 40 mg p.o. every 48 H will hold for SBP <110
(this was adjusted approximately 6 weeks ago from baseline Lasix 40 mg daily due to weight gain)
-Continue Farxiga 10 mg daily with hold parameters
-Check 2D echo
-Healthy heart fluid restrict 40 ounce daily
-Consult CBC cardiology (patient follows with Dr. Radha Gong, cardiology at [facility])
8. Chronic anemia-normocytic, Hgb 12.8
-monitor daily
9. Paroxysmal atrial fibrillation Dx February 2023 [facility], PACs, bradycardia 04/03/2023
-Continue Eliquis 2.5 mg twice daily
10. Other significant medical issues and plans
GERD
-Continue Pepcid 20 mg daily, omeprazole 40 mg daily
Gout
-Continue allopurinol 200 mg daily
anxiety
-Continue lorazepam 0.5 mg twice daily as needed
Restless leg syndrome
-Continue pramipexole 1.25 mg p.o. at bedtime, Lyrica 50 mg daily
Chronic back pain
-pain meds as needed
Chronic neuropathy bilateral feet
-Continue Lyrica 75 mg p.o. at bedtime, 50 mg p.o. daily
Hypomagnesemia, now 2.7
-Continue Mag-Ox 400 mg twice daily, check mag level daily
-stop mag if still elevated tomorrow
Class I obesity�BMI 31.8, Affects all aspects of care
Weight loss recommended
DVT prophylaxis - Continue CLINICAL SCIENTIST Eliquis 2.5 mg twice daily
Full code per patient
sister Stephany is one of her emergency contact
Anticipated Discharge: > 48 hours
Subjective/Interval History
-
Date of Service: September 20, 2024
Complaining of right sided chest pain, radiating into her right shoulder. Troponin of 0.073.
Objective Data
-
Labs:
Laboratory Results
09/20/24
08:09
WBC 24.8 H
Hgb 12.1
Hct 39.6
Plt Count 186
Sodium Pending
Potassium Pending
Chloride Pending
Carbon Dioxide Pending
BUN Pending
Creatinine Pending
Glucose Pending
Calcium Pending
Total Bilirubin Pending
AST Pending
ALT Pending
Alkaline Phosphatase Pending
Vital Signs:
Vital Signs
Temp Pulse Resp BP Pulse Ox
97.6 F 76 18 132/57 96
09/20/24 07:50 09/20/24 07:50 09/20/24 07:50 09/20/24 07:50 09/20/24 08:55
I&O
09/19/24 09/20/24 09/21/24
06:59 06:59 06:59
Intake Total 480 / 480
Balance 480 / 480
Review of Systems
-
History Source: Patient
Cardiac: Reports Chest Pain
Physical Exam
-
General: Well Developed, Well Nourished and Pain
HEENT: Normocephalic, Atraumatic, Nose Appears Normal and Ears Appear Normal
Respiratory: Decreased Breath Sounds
Cardiac: Regular Rhythm and S1/S2
GI: Soft, Nontender and Nondistended
Musculoskeletal: No Clubbing, No Cyanosis, Edema, Right Lower Extrem and Edema, Left Lower Extrem
Skin: Warm and Dry; Negative Rash
Neuro: Awake, Alert and Oriented
Psych: Calm
Data Reviewed
-
Labs: Labs Reviewed by me
[2024-09-20 10:12] LABS: ALT (SGPT) 25 U/L (0-35); AST (SGOT) 35 U/L (14-36); Albumin 3.4 g/dl (3.5-5.0); Alkaline Phosphatase 100 U/L (38-126); Blood Urea Nitrogen 45 mg/dl (7-17); Calcium 8.8 mg/dl (8.4-10.2); Carbon Dioxide 33 mmol/L (22-30); Chloride 98 mmol/L (98-107); Estimated Creatinine Clearance 37 ml/min; Glucose 67 mg/dl (70-99); Potassium 4.4 mmol/L (3.5-5.1); Sodium 135 mmol/L (135-145); Total Bilirubin 0.8 mg/dl (0.2-1.3); Total Protein 5.7 g/dl (6.3-8.2); eGFR 42.88
[2024-09-20 12:22] LABS: Vitamin B12 617 pg/ml (239-931)
[2024-09-20] MEDS: MORPHINE SULFATE 1 MG IV ×2 (12:39→22:27)
[2024-09-20] MEDS: LASIX 40 MG IV (15:52)
[2024-09-20] MEDS: LYRICA 75 MG PO (21:36)
[2024-09-20] MEDS: MIRAPEX 0.25 MG PO (21:43)
[2024-09-20] MEDS: MIRAPEX, GENERIC 1 MG PO (22:31)
[2024-09-21 03:13] VITALS: BP 135/63
[2024-09-21] MEDS: MAXIPIME 1000 MG IV ×2 (03:35→15:29)
[2024-09-21] MEDS: STERILE WATER FOR INJECTION 10 ML IV ×2 (03:35→15:29)
[2024-09-21 06:52] LABS: % Basophils 0.1 % (0-2); % Immature Granulocytes 0.9 % (0-0.5); % Lymphocytes 3.4 % (20.5-51.1); % Monocytes 6.6 % (1.7-9.3); Absolute Immature Granulocytes 0.2 10^3/uL (0-0.05); Absolute Lymphocytes 0.7 10^3/uL (1.2-3.4); Absolute Monocytes 1.4 10^3/uL (0.1-0.6); Absolute Neutrophils 19.2 10^3/uL (1.4-6.5); Hematocrit 39.2 % (37.0-47.0); Hemoglobin 12.3 g/dL (12.0-16.0); Mean Corp Hgb Conc. 31.4 g/dL (33.0-37.0); Mean Corpuscular Hgb 29.4 pg (27.0-31.0); Mean Corpuscular Volume 93.6 fL (81.0-99.0); Mean Platelet Volume 12.6 fL (7.4-10.4); Nucleated Red Blood Cells % 0 %; Platelet Count 196 10^3/uL (130-400); Red Blood Cell Count 4.19 10^6/uL (4.20-5.40); Red Cell Dist. Width 17.9 % (11.5-14.5); White Blood Cell Count 21.6 10^3/uL (4.8-10.8)
[2024-09-21 07:02] LABS: Vancomycin Random 10.2 ug/ml
[2024-09-21 07:17] LABS: ALT (SGPT) 25 U/L (0-35); AST (SGOT) 30 U/L (14-36); Albumin 3.5 g/dl (3.5-5.0); Alkaline Phosphatase 101 U/L (38-126); Blood Urea Nitrogen 45 mg/dl (7-17); Calcium 8.8 mg/dl (8.4-10.2); Carbon Dioxide 36 mmol/L (22-30); Chloride 93 mmol/L (98-107); Estimated Creatinine Clearance 32 ml/min; Glucose 101 mg/dl (70-99); Magnesium 2.7 mg/dl (1.6-2.3); Potassium 4.1 mmol/L (3.5-5.1); Sodium 135 mmol/L (135-145); Total Bilirubin 0.6 mg/dl (0.2-1.3); eGFR 36.12
[2024-09-21] MEDS: SYMBICORT 160/4.5 MCG INHALER 2 PUFF INH ×2 (07:27→18:07)
[2024-09-21] MEDS: SPIRIVA RESPIMAT 2.5 MCG 2 PUFF INH (07:27)
[2024-09-21 07:50] VITALS: BP 121/54
--- NOTE | 2024-09-21 08:01 | PHA.VAN.FU ---
Vancomycin Assessment / Plan
- Assessment
Renal Function: SCR Increasing
WBC's are: Trending Down
In the past 24 hrs, patient has been: Afebrile
Concomitant Antimicrobials: CEFEPIME
- Assessment - Therapeutic Drug Monitoring
Random Level: 10.2
- Dosing Plan
Dosing by Level: Re-dose today (1000MG)
- Monitoring Plan
Random Level: 09/22 IN AM
- Follow Up
Pharmacy will continue to follow.
Vancomycin Follow UP
- -
Patient Age: 73
Patient Sex: Female
Vancomycin Day #: 3
Indication: Pulmonary/Respiratory (SEPSIS)
Requesting Provider: CHEMA
Height / Weight:
Height 5 ft 3 in
Actual Weight 79.861 kg
Pertinent Past Medical History: LUNG CA
- Vital Signs / Lab Results
Temp Pulse Resp BP Pulse Ox
97.0 F 75 14 135/63 96
09/21/24 03:13 09/21/24 07:32 09/21/24 07:32 09/21/24 03:13 09/21/24 07:32
Lab Results - Hematology
09/19/24 09/20/24 09/21/24
13:53 08:09 06:14
WBC 44.8 H* 24.8 H 21.6 H
Lab Results - Chemistry
09/19/24 09/20/24 09/21/24
13:53 08:09 06:14
BUN 57 H 45 H 45 H
Creatinine 1.6 H 1.3 H 1.5 H
Estimated Creat Clear 37 32
Albumin 4.1 3.4 L 3.5
09/19/24 09/19/24
17:29 19:15
Lactic Acid 1.5 Cancelled
Microbiology Results
09/19/24 19:05 Blood Culture - Preliminary
Blood/Venous No Growth in 24 hours- Final report to follow
09/19/24 15:37 Blood Culture - Preliminary
Blood/Venous No Growth in 24 hours- Final report to follow
09/20/24 08:32 Nasal Screen MRSA (PCR) - Final
Nose Staph aureus MRSA
09/19/24 15:37 Influenza Types A & B (BARI) - Final
Nasal Swab Negative for Influenza A & B, NAAT
Negative results must be combined with clinical observations
and patient history.
Nucleic Acid Amplification test (NAAT)performed on the
[employer] platform.
Therapeutic Drug Monitoring
Random Vancomycin 10.2 ug/ml 09/21/24 06:14
[2024-09-21] MEDS: LIORESAL 5 MG PO ×2 (09:00→21:00)
[2024-09-21] MEDS: FARXIGA 10 MG PO (09:00)
[2024-09-21] MEDS: DALIRESP 500 MCG PO (09:00)
[2024-09-21] MEDS: ELIQUIS 2.5 MG PO ×2 (09:00→21:00)
[2024-09-21] MEDS: SINGULAIR 10 MG PO (09:00)
[2024-09-21] MEDS: MYCOSTATIN ORAL SUSPENSION 5 ML PO ×4 (09:00→20:59)
[2024-09-21] MEDS: MAG-TAB SR 84 MG PO ×2 (09:00→21:00)
[2024-09-21] MEDS: FLORASTOR 250 MG PO (09:00)
[2024-09-21] MEDS: PROTONIX 40 MG PO (09:00)
[2024-09-21] MEDS: PEPCID 20 MG PO (09:00)
[2024-09-21] MEDS: LYRICA 50 MG PO (09:00)
[2024-09-21] MEDS: ZYLOPRIM 200 MG PO (09:00)
[2024-09-21] MEDS: LIPITOR 20 MG PO (09:00)
[2024-09-21] MEDS: DELTASONE 10 MG PO (09:01)
--- NOTE | 2024-09-21 10:47 | W.PN.HOSP.TC ---
Today's Communication/Plan
-
see A/P
Assessment / Plan
Assessment / Plan
73-year-old woman with right sided chest pain at rest 4/10 and with a deep breath 7 out of 10, over the past 2 to 3 days along with a nonproductive cough and sore throat with thrush to her tongue and painful swallowing x 1 week.
Recently treated for radiation pneumonitis, 6 to 8 weeks ago at [place]
placed on high-dose steroids starting with 50 mg x 1 week 40 mg x 1 week 30 mg x 1 week to change to 20 mg on 09/21/2024 then to decrease to 10 mg x 1 week and maintain.
20 pound weight gain on steroids was 158 pounds approximately 6 to 8 weeks ago
Lasix was increased from 40 mg daily to alternating 40 mg and 80 mg every other day.
pain is worse when she takes a deep breath.
Found to have probable sepsis from interstitial PNA
A/P:
# Significant leucocytosis POA could be 2/2 CAP, lung cancer, and steroid induced
see below
# Probable Sepsis POA with CAP / Right lower lobe pneumonia.
# Right sided chest pain improving
# Chronic hypoxic respiratory failure on 2 L nasal cannula oxygen
# Chronic COPD
Noted chronic steroids/maintenance antibiotics, which may explain part of high WBC.
CXR with Moderate new interstitial pneumonia in the right middle lobe and right lower; Left pneumonectomy
Continue IV cefepime, IV vancomycin (MRSA screen positive), symptoms improving
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 Sunday
Continue albuterol inhaler, Breo Ellipta, Combivent every 4 as needed
Continue Roflumilast 500 mcg p.o. daily, montelukast 10 mg daily, Fasenra 30 mg SQ every 8 weeks
Continue prednisone 20 mg daily x 1 week then maintain 10 mg daily
Flu and COVID negative
Follow Sputum culture if able to collect
Consider pulm eval although clinically pt is improving
# Acute on chronic CHF, unspecified type
I/O, daily weights, fluid restriction
observing off IV lasix 40 mg daily
Continue Farxiga 10 mg daily
Check 2D echo
Card on board (patient follows with Dr. Radha Gong, cardiology at [facility])
# Elevated troponin suspect non-ID troponin elevation
# CAD status post cardiac stent 03/08/2023
# Non-sustained VT likely related to acute infection
Cont Eliquis 2.5 mg twice daily, atorvastatin 20 mg daily
Troponin peaked at 0.137 -> 0.073
Cardiology on board
# Right upper lung CA, Dx February 2024 unknown type status post radiation x 5 sessions completed May 2024
# Status post radiation pneumonitis approximate 6 to 8 weeks ago treated at [facility] with steroid regimen starting at 50 mg
# status post LEFT pneumonectomy-NON SMALL CELL years ago per patient
prednisone regimen as above
Patient follows with oncology [facility] Dr. Capellan
# Suspect CKD 3B
Likely no SARITA
Creat 1.6 which appears to be at baseline
IV Lasix per card
# Oral thrush with odynophagia concern for esophageal Lily with history of due to chronic steroid/inhalers
Nystatin swish and swallow
Patient denies difficulty swallowing
# Admission Hypotension, resolved
# Essential hypertension
BP stable.
[employer] PL[employer] WORKER spironolactone 25 mg daily on hold
Monitor blood pressure with Lasix
# Chronic anemia-normocytic, Hgb 12.8
monitor daily
# Paroxysmal atrial fibrillation
Continue Eliquis 2.5 mg twice daily
Other significant medical issues and plans
# GERD, Continue Pepcid 20 mg daily, omeprazole 40 mg daily
# Gout, Continue allopurinol 200 mg daily
# anxiety, Continue lorazepam 0.5 mg twice daily as needed
# Restless leg syndrome, Continue pramipexole 1.25 mg p.o. at bedtime, Lyrica 50 mg daily
# Chronic back pain, pain meds as needed
# Chronic neuropathy bilateral feet, Continue Lyrica 75 mg p.o. at bedtime, 50 mg p.o. daily
# Class I obesity�BMI 31.8, Affects all aspects of care
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
Full code per patient
Dispo: PT OT eval
d/w sister at bedside
total time spent 51 min
Anticipated Discharge: 24 - 48 hours
Subjective/Interval History
-
Date of Service: September 21, 2024
Objective Data
-
Labs:
Laboratory Results
09/21/24
06:14
WBC 21.6 H
Hgb 12.3
Hct 39.2
Plt Count 196
Sodium 135
Potassium 4.1
Chloride 93 L
Carbon Dioxide 36 H
BUN 45 H
Creatinine 1.5 H
Glucose 101 H
Calcium 8.8
Total Bilirubin 0.6
AST 30
ALT 25
Alkaline Phosphatase 101
Vital Signs:
Vital Signs
Temp Pulse Resp BP Pulse Ox
36.4 C 74 20 121/54 98
09/21/24 07:50 09/21/24 07:50 09/21/24 07:50 09/21/24 07:50 09/21/24 07:50
I&O
09/20/24 09/21/24 09/22/24
06:59 06:59 06:59
Intake Total 480 / 480 640 / 640 240 / 240
Balance 480 / 480 640 / 640 240 / 240
Review of Systems
-
History Source: Patient
All other systems: Reviewed and negative
Cardiac: Denies Chest Pain (much improved)
Physical Exam
-
General: Well Developed, Well Nourished, Comfortable, Respiratory Distress (chronic), Conversant and Appears Chronically Ill
HEENT: Normocephalic, Atraumatic, Nose Appears Normal, Ears Appear Normal and Oxygen (2L NC)
Respiratory: Non Labored Respirations and Decreased Breath Sounds; Negative Accessory Resp Muscle Use
Cardiac: Regular Rhythm and S1/S2
GI: Soft, Nontender and Nondistended
Musculoskeletal: No Clubbing, No Cyanosis, Edema, Right Lower Extrem (mild) and Edema, Left Lower Extrem (mild)
Skin: Warm and Dry; Negative Rash
Neuro: Awake, Alert and Oriented
Psych: Calm and Intact Judgement/Insight
Data Reviewed
-
Diagnostic Radiology: Report Reviewed by me
Labs: Labs Reviewed by me
[2024-09-21 11:37] VITALS: BP 148/68
[2024-09-21] MEDS: VANCOCIN 200 IV (11:42)
--- NOTE | 2024-09-21 12:35 | W.PN.CD ---
Today's Communication / Plan
-
IV lasix once
Impression / Plan
-
IMPRESSION/PLAN: 73F with paroxysmal atrial fibrillation (on apixaban), coronary artery disease (PCI 02/2023), CKD3a, lung cancer status post left pneumonectomy and XRT to right upper lung, chronic heart failure (type unknown), hypertension, and
dyslipidemia who presented with a chief complaint of shortness of breath.
Primary Provider Enrollment Specialist: [facility]
Sepsis, in the setting of RLL PNA, with underlying COPD & chronic hypoxic respiratory failure on supplemental oxygen - per primary
Abnormal troponin, likely nonischemic myocardial injury in the setting of acute illness (sepsis)
-Peak troponin on admission, 0.137
-Chest pain-free with a stable EKG
Heart failure, presumed HFpEF, acute
-Compared to prior admission 03/2023 her weight is up approximately 7 kg
-Will give one more IV lasix 40 mg
-Trend daily weight, I/O, and BMP with diuresis
-Heart failure education
-Echocardiogram on Sunday if respiratory status is stable
Paroxysmal atrial fibrillation
-In sinus
-Oral Anticoagulation: Apixaban 2.5 mg twice daily, appropriate dosing for her weight/renal function/age will be 5 mg twice daily, continue current dosing per her primary microwave supervisor
-[id number]: score at least 5 (Heart failure, HTN, age 75 or more, female gender)
Lung cancer
-Left pneumonectomy in the setting of an SCC
-Recent XRT to RUL status post radiation pneumonitis
-Follows at [facility]
CAD
-Stable without chest pain
-On single agent apixaban
SARITA on CKD3b - 1.5 Cr today monitor
SUBJECTIVE:
Feeling much improved
Physical Exam
Vital Signs/Labs
Vital Signs
Temp Pulse Resp BP Pulse Ox
97.6 F 78 18 148/68 99
09/21/24 11:37 09/21/24 11:37 09/21/24 11:37 09/21/24 11:37 09/21/24 11:37
09/20/24 09/21/24 09/22/24
06:59 06:59 06:59
Actual Weight 176 lb 1 oz
09/21/24 06:14
09/21/24 06:14
Magnesium 2.7 mg/dl (1.6-2.3) H 09/21/24 06:14
09/19/24 09/19/24
13:53 15:37
Dmo-B-Ctwwodadres Pept 1750 Cancelled
LAB Results
09/19/24 09/19/24 09/20/24
13:53 19:05 00:23
Troponin I 0.137 H* 0.097 H* D 0.073 H*
Physical Exam
Constitutional: No acute distress and Comfortable
EENT: Anicteric
Cardiovascular: Rhythm & rate is regular and Pedal edema is absent
Respiratory: Respiratory effort normal and Crackles Present (faint)
GI: Soft
Neuro/Psych: AO x 3
Data Reviewed
-
Date of Service: September 21, 2024
EKG: Tracing Personally Visualized and interpreted (sr)
Echo: Ordered by me
Labs: Labs Reviewed by me
--- NOTE | 2024-09-21 13:28 | CM ---
Initial assessment completed
IMM benefit explained; form signed @ 1325
Pharmacy verified: [facility] @ [address] [facility]
Patient lives in a one story home with her daughter; 2 steps to enter; bath has stall shower with grab bar and built in seat
PLOF: independent with ADLs; ambulates with a cane; Home Oxygen 2 liter [place]; Oxygen vendor [facility]
SNF stay @ [place] 2019 or 2020; Home Health with [facility] in the past
Family will transport home
Explained to patient that PT recommended Home Health; patient agreeable; agency options reviewed; [facility] is preference; referral sent via [facility]
Plan: discharge to home when medically stable with home health services
[2024-09-21] MEDS: LASIX 40 MG IV (13:40)
[2024-09-21 15:55] VITALS: BP 148/79
[2024-09-21 19:30] VITALS: BP 125/77
[2024-09-21] MEDS: MIRAPEX 0.25 MG PO (21:00)
[2024-09-21] MEDS: MIRAPEX, GENERIC 1 MG PO (21:06)
[2024-09-21] MEDS: LYRICA 75 MG PO (21:10)
[2024-09-21 23:45] VITALS: BP 119/83
[2024-09-22] MEDS: ProAIR HFA INHALER 2 PUFF INH ×2 (01:45→07:15)
[2024-09-22] MEDS: MORPHINE SULFATE 1 MG IV (02:38)
[2024-09-22 03:11] VITALS: BP 140/80
[2024-09-22] MEDS: MAXIPIME 1000 MG IV ×2 (03:21→15:44)
[2024-09-22] MEDS: STERILE WATER FOR INJECTION 10 ML IV ×2 (03:22→15:44)
[2024-09-22 06:00] VITALS: BMI 31.2
[2024-09-22] MEDS: SPIRIVA RESPIMAT 2.5 MCG 2 PUFF INH (07:15)
[2024-09-22] MEDS: SYMBICORT 160/4.5 MCG INHALER 2 PUFF INH (07:15)
[2024-09-22 07:43] VITALS: BP 136/76
[2024-09-22] MEDS: DELTASONE 10 MG PO (07:52)
[2024-09-22] MEDS: PEPCID 20 MG PO (07:52)
[2024-09-22] MEDS: MYCOSTATIN ORAL SUSPENSION 5 ML PO ×4 (07:52→21:00)
[2024-09-22] MEDS: PROTONIX 40 MG PO (07:52)
[2024-09-22] MEDS: LIPITOR 20 MG PO (07:52)
[2024-09-22] MEDS: LYRICA 50 MG PO (07:52)
[2024-09-22] MEDS: ZYLOPRIM 200 MG PO (07:52)
[2024-09-22] MEDS: DALIRESP 500 MCG PO (07:52)
[2024-09-22] MEDS: SINGULAIR 10 MG PO (07:52)
[2024-09-22] MEDS: FLORASTOR 250 MG PO (07:52)
[2024-09-22] MEDS: LIORESAL 5 MG PO ×2 (07:52→19:27)
[2024-09-22] MEDS: FARXIGA 10 MG PO (07:52)
[2024-09-22] MEDS: ELIQUIS 2.5 MG PO ×2 (07:53→19:28)
[2024-09-22] MEDS: MAG-TAB SR 84 MG PO ×2 (07:53→19:27)
--- NOTE | 2024-09-22 08:13 | W.PN.HOSP.TC ---
Today's Communication/Plan
-
IV diuresis
Echo today
Assessment / Plan
Assessment / Plan
Physical Exam
General: Not in acute distress
HEENT: Normocephalic, Atraumatic, Oxygen (2L NC)
Respiratory: Non Labored Respirations and Decreased Breath Sounds; Negative Accessory Resp Muscle Use
Cardiac: Regular Rhythm and S1/S2
GI: Soft, Nontender and Nondistended. Positive bowel sounds.
Musculoskeletal: No Cyanosis. Edema, Right Lower Extremity (mild) and Edema, Left Lower Extremity (mild)
Skin: Warm and Dry
Neuro: Awake, Alert and Oriented
Psych: Calm and Intact Judgement/Insight
Assessment/Plan
73-year-old woman with right sided chest pain at rest 4/10 and with a deep breath 7 out of 10, over the past 2 to 3 days along with a nonproductive cough and sore throat with thrush to her tongue and painful swallowing x 1 week.
Recently treated for radiation pneumonitis, 6 to 8 weeks ago at [facility]
placed on high-dose steroids starting with 50 mg x 1 week 40 mg x 1 week 30 mg x 1 week to change to 20 mg on 09/21/2024 then to decrease to 10 mg x 1 week and maintain.
20 pound weight gain on steroids was 158 pounds approximately 6 to 8 weeks ago
Lasix was increased from 40 mg daily to alternating 40 mg and 80 mg every other day.
pain is worse when she takes a deep breath.
Found to have probable sepsis from interstitial PNA
# Significant leucocytosis POA could be 2/2 CAP, lung cancer, and steroid induced
see below
# Probable Sepsis POA with CAP / Right lower lobe pneumonia.
# History of Lung Cancer
# Right sided chest pain improving
# Chronic hypoxic respiratory failure on 2 L nasal cannula oxygen
# Chronic COPD
Noted chronic steroids/maintenance antibiotics, which may explain part of high WBC.
CXR with Moderate new interstitial pneumonia in the right middle lobe and right lower; Left pneumonectomy
Continue IV cefepime, IV vancomycin (MRSA screen positive), symptoms improving
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 Sunday
Continue albuterol inhaler, Breo Ellipta, Combivent every 4 as needed
Continue Roflumilast 500 mcg p.o. daily, montelukast 10 mg daily, Fasenra 30 mg SQ every 8 weeks
Continue Prednisone 20 mg daily x 1 week then maintain Prednisone 10 mg daily
Flu and COVID negative
Follow Sputum culture if able to collect
Consider pulm eval as below
# Acute on chronic CHF, unspecified type
I/O, daily weights, fluid restriction
Furosemide increased as per cardiology
Continue Farxiga 10 mg daily
Check 2D echo
Card on board (patient follows with Dr. Radha Gong, cardiology at [facility])
-I discussed with spar machine operator helper Dr. Kimble, who is thinking if this really is all Pulmonary given her very complex and high risk pulmonary situation and that patient might benefit from pulmonary consultation, especially if she does not dramatically
improve after one or two days of more aggressive diuresis
# Elevated troponin suspect non-OH troponin elevation
# CAD status post cardiac stent 03/08/2023
# Non-sustained VT likely related to acute infection
Cont Eliquis 2.5 mg twice daily, atorvastatin 20 mg daily
Troponin peaked at 0.137 -> 0.073
Cardiology on board
# Right upper lung CA, Dx February 2024 unknown type status post radiation x 5 sessions completed May 2024
# Status post radiation pneumonitis approximate 6 to 8 weeks ago treated at [facility] with steroid regimen starting at 50 mg
# status post LEFT pneumonectomy-NON SMALL CELL years ago per patient
prednisone regimen as above
Patient follows with oncology [facility] Dr. Capellan
# Suspect CKD 3B
Likely no SARITA
Creat 1.4 which appears to be at baseline
IV Lasix per card
# Oral thrush with odynophagia concern for esophageal Lily with history of due to chronic steroid/inhalers
Nystatin swish and swallow
Patient denies difficulty swallowing
# Admission Hypotension, resolved
# Essential hypertension
BP stable.
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
Monitor blood pressure with Lasix
# Chronic anemia-normocytic, Hgb 12.8
monitor daily
# Paroxysmal atrial fibrillation
Continue Eliquis 2.5 mg twice daily
Other significant medical issues and plans
# GERD, Continue Pepcid 20 mg daily, omeprazole 40 mg daily
# Gout, Continue allopurinol 200 mg daily
# anxiety, Continue lorazepam 0.5 mg twice daily as needed
# Restless leg syndrome, Continue pramipexole 1.25 mg p.o. at bedtime, Lyrica 50 mg daily
# Chronic back pain, pain meds as needed
# Chronic neuropathy bilateral feet, Continue Lyrica 75 mg p.o. at bedtime, 50 mg p.o. daily
# Class I obesity�BMI 31.8, Affects all aspects of care
DVT prophylaxis - Continue PIE TOPPER Eliquis 2.5 mg twice daily
Full code per patient
Dispo: PT OT eval
Anticipated Discharge: > 48 hours
Subjective/Interval History
-
Date of Service: September 22, 2024
Patient was seen and examined. She reported no chest pain or new shortness of breath.
Objective Data
-
Labs:
Laboratory Results
09/22/24
07:14
WBC Pending
Hgb Pending
Hct Pending
Plt Count Pending
Sodium Pending
Potassium Pending
Chloride Pending
Carbon Dioxide Pending
BUN Pending
Creatinine Pending
Glucose Pending
Calcium Pending
Total Bilirubin Pending
AST Pending
ALT Pending
Alkaline Phosphatase Pending
Vital Signs:
Vital Signs
Temp Pulse Resp BP Pulse Ox
98.3 F 76 18 136/76 98
09/22/24 07:43 09/22/24 07:43 09/22/24 07:43 09/22/24 07:43 09/22/24 07:43
I&O
09/21/24 09/22/24 09/23/24
06:59 06:59 06:59
Intake Total 640 / 640 1330 / 1330
Balance 640 / 640 1330 / 1330
[2024-09-22 08:22] LABS: % Basophils 0.1 % (0-2); % Lymphocytes 6.7 % (20.5-51.1); % Monocytes 10.7 % (1.7-9.3); % Neutrophils 81.5 % (42.2-75.2); Absolute Immature Granulocytes 0.2 10^3/uL (0-0.05); Absolute Monocytes 1.6 10^3/uL (0.1-0.6); Absolute Neutrophils 12.2 10^3/uL (1.4-6.5); Hemoglobin 12.9 g/dL (12.0-16.0); Mean Corpuscular Hgb 28.7 pg (27.0-31.0); Mean Corpuscular Volume 95.8 fL (81.0-99.0); Nucleated Red Blood Cells % 0 %; Platelet Count 219 10^3/uL (130-400); Red Blood Cell Count 4.49 10^6/uL (4.20-5.40); Red Cell Dist. Width 17.8 % (11.5-14.5)
[2024-09-22 08:38] LABS: Vancomycin Random 13.2 ug/ml
--- NOTE | 2024-09-22 08:41 | PHA.VAN.FU ---
Vancomycin Assessment / Plan
- Assessment
Renal Function: Stable
WBC's are: Trending Down
In the past 24 hrs, patient has been: Afebrile
Concomitant Antimicrobials: cefepime
- Assessment - Therapeutic Drug Monitoring
Random Level: 13.2 - drawn ~19.5H after previous dose of 1000mg
Half-life between levels of 15.7 and 10.2 was about 36H
Patient may require prolonged re-dosing interval but do not expect patient will maintain level > 10 for next 24H
- Dosing Plan
Dosing by Level: Re-dose today (Vanc 1000mg)
Dosing Comments: re-dose with same as yesterday to follow level trend
- Monitoring Plan
Random Level: 09/23 06
- Follow Up
Pharmacy will continue to follow.
Vancomycin Follow UP
- -
Patient Age: 73
Patient Sex: Female
Vancomycin Day #: 4
Indication: Pulmonary/Respiratory
Requesting Provider: Elena Abreu
Pertinent Antimicrobial Allergies:
levofloxacin - nausea
Height / Weight:
Height 5 ft 3 in
Actual Weight 79.946 kg
Pertinent Past Medical History: BMI ~31, Lung cancer, CKD III (SCR ~1.6)
- Vital Signs / Lab Results
Temp Pulse Resp BP Pulse Ox
98.3 F 76 18 136/76 98
09/22/24 07:43 09/22/24 07:43 09/22/24 07:43 09/22/24 07:43 09/22/24 07:43
Lab Results - Hematology
09/19/24 09/20/24 09/21/24
13:53 08:09 06:14
WBC 44.8 H* 24.8 H 21.6 H
09/22/24
07:14
WBC 15.0 H
Lab Results - Chemistry
09/19/24 09/20/24 09/21/24
13:53 08:09 06:14
BUN 57 H 45 H 45 H
Creatinine 1.6 H 1.3 H 1.5 H
Estimated Creat Clear 37 32
Albumin 4.1 3.4 L 3.5
09/19/24 09/19/24
17:29 19:15
Lactic Acid 1.5 Cancelled
Microbiology Results
09/19/24 19:05 Blood Culture - Preliminary
Blood/Venous No Growth in 48 hours- Final report to follow
09/19/24 15:37 Blood Culture - Preliminary
Blood/Venous No Growth in 48 hours- Final report to follow
09/21/24 11:50 Gram Stain - Preliminary
Sputum
09/20/24 08:32 Nasal Screen MRSA (PCR) - Final
Nose Staph aureus MRSA
Therapeutic Drug Monitoring
Random Vancomycin 13.2 ug/ml 09/22/24 07:14
[2024-09-22 08:47] LABS: ALT (SGPT) 25 U/L (0-35); AST (SGOT) 27 U/L (14-36); Albumin 3.5 g/dl (3.5-5.0); Alkaline Phosphatase 104 U/L (38-126); Blood Urea Nitrogen 39 mg/dl (7-17); Calcium 9.1 mg/dl (8.4-10.2); Carbon Dioxide 40 mmol/L (22-30); Chloride 93 mmol/L (98-107); Estimated Creatinine Clearance 35 ml/min; Glucose 83 mg/dl (70-99); Magnesium 2.6 mg/dl (1.6-2.3); Sodium 138 mmol/L (135-145); Total Bilirubin 0.6 mg/dl (0.2-1.3); Total Protein 6.1 g/dl (6.3-8.2); eGFR 39.23
--- NOTE | 2024-09-22 10:15 | W.PN.CD ---
Today's Communication / Plan
-
Echo
GDMT for presumed HFpEF
Consider pulmonary consult given the complex past and recent pulmonary histroy
Impression / Plan
-
73F with paroxysmal atrial fibrillation (on apixaban), coronary artery disease (PCI 02/2023), CKD3a, lung cancer status post left pneumonectomy and XRT to right upper lung, chronic heart failure (type unknown), hypertension, and dyslipidemia who
presented with a chief complaint of shortness of breath.
Primary Instructional Materials Director: [facility]
Abnormal troponin, likely nonischemic myocardial injury in the setting of acute illness (sepsis)
-Peak troponin on admission, 0.137
-Chest pain-free with a stable EKG
Heart failure, presumed HFpEF, acute
-Compared to prior admission 03/2023 her weight is up approximately 7 kg
-No real weight loss => will increase diuresis
-Trend daily weight, I/O, and BMP with diuresis
-Heart failure education
-Echocardiogram today
Paroxysmal atrial fibrillation
-In sinus
-Oral Anticoagulation: Apixaban 2.5 mg twice daily, appropriate dosing for her weight/renal function/age will be 5 mg twice daily, continue current dosing per her primary can sorter
-[id number]: score at least 5 (Heart failure, HTN, age 73 or more, female gender)
Lung cancer
-Left pneumonectomy in the setting of an SCC
-Recent XRT to RUL status post RECENT radiation pneumonitis
-Follows at [facility]
CAD
-Stable without chest pain
-On single agent apixaban
SARITA on CKD3b - 1.5 Cr today monitor
Subjective:
Feeling much improved
Physical Exam
Vital Signs/Labs
Vital Signs
Temp Pulse Resp BP Pulse Ox
98.3 F 76 18 136/76 98
09/22/24 07:43 09/22/24 07:43 09/22/24 07:43 09/22/24 07:43 09/22/24 08:00
09/21/24 09/22/24 09/23/24
06:59 06:59 06:59
Actual Weight 79.946 kg
09/22/24 07:14
09/22/24 07:14
Magnesium 2.6 mg/dl (1.6-2.3) H 09/22/24 07:14
09/19/24 09/19/24
13:53 15:37
Cnp-K-Jojjapfmorh Pept 1750 Cancelled
LAB Results
09/19/24 09/19/24 09/20/24
13:53 19:05 00:23
Troponin I 0.137 H* 0.097 H* D 0.073 H*
Physical Exam
Constitutional: No acute distress
EENT: Anicteric
Cardiovascular: Rhythm & rate is regular and Pedal edema is absent
Respiratory: Respiratory effort normal and Rhonchi Present
GI: Soft and Distention absent
Neuro/Psych: AO x 3
Data Reviewed
-
Date of Service: September 22, 2024
--- NOTE | 2024-09-22 10:54 | CM ---
Chart reviewed and recommendation by physical therapy is for home with home health, options reviewed with patient and patient has selected [facility] visiting nurses. Referral sent to [facility] visiting nurses.
[facility]
Report [phone]
[2024-09-22] MEDS: VANCOCIN 200 IV (11:24)
[2024-09-22] MEDS: LASIX 80 MG IV ×2 (11:25→15:44)
[2024-09-22 11:38] VITALS: BP 158/71
[2024-09-22 15:37] VITALS: BP 141/85
[2024-09-22 16:14] VITALS: PULSE 88; PULSE 98; O2SAT 97
[2024-09-22 19:11] LABS: Hepatitis C Antibody Negative (Negative)
[2024-09-22 19:30] VITALS: BP 155/82
[2024-09-22] MEDS: SYMBICORT 160/4.5 MCG INHALER INH (20:42)
[2024-09-22] MEDS: LYRICA 75 MG PO (20:58)
[2024-09-22] MEDS: MIRAPEX, GENERIC 1 MG PO (20:59)
[2024-09-22] MEDS: MIRAPEX 0.25 MG PO (20:59)
[2024-09-23] VITALS (7 sets, daily range): BP systolic 117–139; BP diastolic 56–74; BMI 29.7
[2024-09-23] MEDS: STERILE WATER FOR INJECTION 10 ML IV ×2 (03:49→17:32)
[2024-09-23] MEDS: MAXIPIME 1000 MG IV ×2 (03:49→17:32)
[2024-09-23] MEDS: SYMBICORT 160/4.5 MCG INHALER 2 PUFF INH ×2 (07:20→19:45)
[2024-09-23] MEDS: SPIRIVA RESPIMAT 2.5 MCG 2 PUFF INH (07:20)
[2024-09-23 07:23] LABS: % Basophils 0.4 % (0-2); % Lymphocytes 6.6 % (20.5-51.1); % Monocytes 14.5 % (1.7-9.3); % Neutrophils 76.5 % (42.2-75.2); Absolute Basophils 0.1 10^3/uL (0-0.2); Absolute Immature Granulocytes 0.3 10^3/uL (0-0.05); Absolute Monocytes 2.2 10^3/uL (0.1-0.6); Absolute Neutrophils 11.6 10^3/uL (1.4-6.5); Hematocrit 42.4 % (37.0-47.0); Hemoglobin 13.1 g/dL (12.0-16.0); Mean Corp Hgb Conc. 30.9 g/dL (33.0-37.0); Mean Corpuscular Hgb 29.2 pg (27.0-31.0); Mean Corpuscular Volume 94.4 fL (81.0-99.0); Mean Platelet Volume 12.6 fL (7.4-10.4); Nucleated Red Blood Cells % 0 %; Platelet Count 206 10^3/uL (130-400); Red Blood Cell Count 4.49 10^6/uL (4.20-5.40); Red Cell Dist. Width 17.8 % (11.5-14.5); White Blood Cell Count 15.2 10^3/uL (4.8-10.8)
[2024-09-23 07:37] LABS: ALT (SGPT) 24 U/L (0-35); AST (SGOT) 27 U/L (14-36); Albumin 3.9 g/dl (3.5-5.0); Alkaline Phosphatase 95 U/L (38-126); Blood Urea Nitrogen 51 mg/dl (7-17); Calcium 9.2 mg/dl (8.4-10.2); Carbon Dioxide 38 mmol/L (22-30); Chloride 88 mmol/L (98-107); Estimated Creatinine Clearance 32 ml/min; Glucose 94 mg/dl (70-99); Magnesium 2.4 mg/dl (1.6-2.3); Potassium 4.1 mmol/L (3.5-5.1); Sodium 136 mmol/L (135-145); Total Protein 6.2 g/dl (6.3-8.2); Vancomycin Random 17.2 ug/ml; eGFR 36.12
--- NOTE | 2024-09-23 08:32 | PHA.VAN.FU ---
Vancomycin Assessment / Plan
- Assessment
Renal Function: Stable
WBC's are: Stable
In the past 24 hrs, patient has been: Afebrile
Concomitant Antimicrobials: cefepime
- Assessment - Therapeutic Drug Monitoring
Random Level: 17.2 - drawn ~18.5H after previous dose of 1000mg
- Dosing Plan
Dosing by Level: Hold off on dosing today
- Monitoring Plan
Random Level: 09/24 599
- Follow Up
Pharmacy will continue to follow.
Vancomycin Follow UP
- -
Patient Age: 73
Patient Sex: Female
Vancomycin Day #: 5
Indication: Pulmonary/Respiratory
Requesting Provider: Elena Abreu
Pertinent Antimicrobial Allergies:
levofloxacin - nausea
Height / Weight:
Height 5 ft 3 in
Actual Weight 75.977 kg
Pertinent Past Medical History: BMI ~31, Lung cancer, CKD III (SCR ~1.6)
- Vital Signs / Lab Results
Temp Pulse Resp BP Pulse Ox
97.8 F 78 20 120/61 97
09/23/24 07:58 09/23/24 07:58 09/23/24 07:58 09/23/24 07:58 09/23/24 07:58
Lab Results - Hematology
09/20/24 09/21/24 09/22/24
08:09 06:14 07:14
WBC 24.8 H 21.6 H 15.0 H
09/23/24
06:03
WBC 15.2 H
Lab Results - Chemistry
09/20/24 09/21/24 09/22/24
08:09 06:14 07:14
BUN 45 H 45 H 39 H
Creatinine 1.3 H 1.5 H 1.4 H
Estimated Creat Clear 37 32 35
Albumin 3.4 L 3.5 3.5
09/23/24
06:03
BUN 51 H
Creatinine 1.5 H
Estimated Creat Clear 32
Albumin 3.9
Microbiology Results
09/19/24 19:05 Blood Culture - Preliminary
Blood/Venous No Growth in 72 hours- Final report to follow
09/19/24 15:37 Blood Culture - Preliminary
Blood/Venous No Growth in 72 hours- Final report to follow
09/21/24 11:50 Respiratory Culture - Preliminary
Sputum Usual Respiratory Hailee
Gram Stain - Preliminary
Therapeutic Drug Monitoring
Random Vancomycin 17.2 ug/ml 09/23/24 06:03
[2024-09-23] MEDS: ELIQUIS 2.5 MG PO (08:44)
[2024-09-23] MEDS: SINGULAIR 10 MG PO (08:44)
[2024-09-23] MEDS: DELTASONE 10 MG PO (08:44)
[2024-09-23] MEDS: PEPCID 20 MG PO (08:44)
[2024-09-23] MEDS: LIORESAL 5 MG PO ×2 (08:44→20:39)
[2024-09-23] MEDS: LYRICA 50 MG PO (08:44)
[2024-09-23] MEDS: FARXIGA 10 MG PO (08:45)
[2024-09-23] MEDS: PROTONIX 40 MG PO (08:45)
[2024-09-23] MEDS: MYCOSTATIN ORAL SUSPENSION 5 ML PO ×4 (08:45→21:32)
[2024-09-23] MEDS: LIPITOR 20 MG PO (08:45)
[2024-09-23] MEDS: DALIRESP 500 MCG PO (08:45)
[2024-09-23] MEDS: FLORASTOR 250 MG PO (08:45)
[2024-09-23] MEDS: LASIX 80 MG IV ×2 (08:45→17:35)
[2024-09-23] MEDS: ZYLOPRIM 200 MG PO (08:45)
[2024-09-23] MEDS: MAG-TAB SR 84 MG PO ×2 (08:45→20:39)
--- NOTE | 2024-09-23 10:36 | W.PN.CD ---
Today's Communication / Plan
-
Increase Eliquis to 5 BID
One to 2 more days of IV BID Lasix
Add Aldactone at low dose
Will need to pick new goal dry weight
Consider pulmonary evaluation
Impression / Plan
-
73F with paroxysmal atrial fibrillation (on apixaban), coronary artery disease (PCI 02/2023), CKD3a, lung cancer status post left pneumonectomy and XRT to right upper lung, chronic heart failure (type unknown), hypertension, and dyslipidemia who
presented with a chief complaint of shortness of breath.
Primary Gang Ripsaw Operator: [facility]
Dyspnea:
- May have pulmonary component added to HFpEF
Acute on chronic HFpEF,
-Compared to prior admission 03/2023 her weight is up approximately 7 kg
-No real weight loss until IV Lasix dose increased yesterday
-Trend daily weight, I/O, and BMP with diuresis
-Heart failure education
-Echo below
-GDMT: Loop diuretic, SGLT2-I, will add low dose MRA (Aldactone 12.5 daily)
-Continue BID IV Lasix another day or two, watch for contracture alkalosis to worsen
-Will need to pick new goal weight
Mild to moderate aortic stenosis
CAD, stable, no symptoms, prior PCI/on single agent Eliquis
PAF, in sinus, will increase Eliquis to 5 mg BID (current age/weight/Cr), came in on 2.5,[id number] 5 (HF/CAD/HTN/age2/gender)
Abnormal troponin from nonischemic myocardial injury in the setting of acute illness (sepsis), peak troponin on admission, 0.137
-Chest pain-free with a stable EKG and no wall motion on echo
Mixed hyperlipidemia, on statin
Lung cancer, follows at [facility]
-Left pneumonectomy in the setting of an SCC
-Recent XRT to RUL status post radiation pneumonitis, fall 2023
SARITA on CKD3b - 1.5 Cr today monitor
Subjective:
Feeling much improved
Data 09/22/2024: LVEF 60-65%, mild LVH, mild-mod (peak/mean gradient 21/12 mmHg, JEFFY 1.1 cm2), mild TR est PASP 37
Physical Exam
Vital Signs/Labs
Vital Signs
Temp Pulse Resp BP Pulse Ox
97.8 F 78 20 120/61 97
09/23/24 07:58 09/23/24 07:58 09/23/24 07:58 09/23/24 07:58 09/23/24 07:58
09/22/24 09/23/24 09/24/24
06:59 06:59 06:59
Actual Weight 79.946 kg 75.977 kg
09/23/24 06:03
09/23/24 06:03
Magnesium 2.4 mg/dl (1.6-2.3) H 09/23/24 06:03
09/19/24 09/19/24
13:53 15:37
Bcn-K-Tzgsdqpatps Pept 1750 Cancelled
Physical Exam
Constitutional: No acute distress
EENT: Anicteric
Cardiovascular: Rhythm & rate is regular and Pedal edema is absent
Respiratory: Respiratory effort normal and Lungs clear to auscul. (decrease BS on left s/p pneumonectomy on left)
GI: Soft and Distention absent
Neuro/Psych: AO x 3
Data Reviewed
-
Date of Service: September 23, 2024
--- NOTE | 2024-09-23 12:30 | PTCARENOTE ---
Patient now in a rapid Afib 140-170. PA made aware, orders for ECG, Cardizem bolus & drip. ECG confirmed Afib RVR. Cardizem bolus given at 1247 & drip hung at 1300. Patient resting in bed, no c/o pain.
[2024-09-23] MEDS: CARDIZEM 10 MG IV (12:47)
--- NOTE | 2024-09-23 12:59 | CM ---
Home with [facility] nurses.
[facility]
Report [phone]
[2024-09-23] MEDS: CARDIZEM 125 IV (13:08)
--- NOTE | 2024-09-23 13:45 | W.PN.UPDATE ---
Update Note
Progress Note Update
Patient now in atrial fibrillation with rapid ventricular response.
Noted allergies/intolerances to both amiodarone and dofetilide.
Diltiazem 10 mg IV bolus followed by initiation of a drip.
Follow telemetry.
--- NOTE | 2024-09-23 14:02 | PTCARENOTE ---
Patient continues to be in AFIb HR 148-160. PA made aware, order obtained to increase Cardizem to 10mg/hr
--- NOTE | 2024-09-23 15:01 | W.PN.HOSP.TC ---
Today's Communication/Plan
-
A Fib RVR -- Cardizem bolus and drip
IV Lasix
Pulm consult
Assessment / Plan
Assessment / Plan
Physical Exam
General: Not in acute distress
HEENT: Normocephalic, Atraumatic, Oxygen (2L NC)
Respiratory: Non Labored Respirations and Decreased Breath Sounds; Negative Accessory Resp Muscle Use
Cardiac: Regular Rhythm and S1/S2
GI: Soft, Nontender and Nondistended. Positive bowel sounds.
Musculoskeletal: No Cyanosis. Edema, Right Lower Extremity (mild) and Edema, Left Lower Extremity (mild)
Skin: Warm and Dry
Neuro: Awake, Alert and Oriented
Psych: Calm and Intact Judgement/Insight
Assessment/Plan
73-year-old woman with right sided chest pain at rest 4/10 and with a deep breath 7 out of 10, over the past 2 to 3 days along with a nonproductive cough and sore throat with thrush to her tongue and painful swallowing x 1 week.
Recently treated for radiation pneumonitis, 6 to 8 weeks ago at [facility]
placed on high-dose steroids starting with 50 mg x 1 week 40 mg x 1 week 30 mg x 1 week to change to 20 mg on 09/21/2024 then to decrease to 10 mg x 1 week and maintain.
20 pound weight gain on steroids was 158 pounds approximately 6 to 8 weeks ago
Lasix was increased from 40 mg daily to alternating 40 mg and 80 mg every other day.
pain is worse when she takes a deep breath.
Found to have probable sepsis from interstitial PNA
# Significant leucocytosis POA could be 2/2 CAP, lung cancer, and steroid induced
see below
# Probable Sepsis POA with CAP / Right lower lobe pneumonia.
# History of Lung Cancer
# Right sided chest pain improving
# Chronic hypoxic respiratory failure on 2 L nasal cannula oxygen
# Chronic COPD
Noted chronic steroids/maintenance antibiotics, which may explain part of high WBC.
CXR with Moderate new interstitial pneumonia in the right middle lobe and right lower; Left pneumonectomy
Continue IV cefepime, IV vancomycin (MRSA screen positive), symptoms improving
Holding IMPROVEMENT SPECIALIST chronic Azithromycin to 500 mg Sunday and Bactrim 1 tab p.o. Sunday
Continue albuterol inhaler, Breo Ellipta, Combivent every 4 as needed
Continue Roflumilast 500 mcg p.o. daily, montelukast 10 mg daily, Fasenra 30 mg SQ every 8 weeks
Continue Prednisone 20 mg daily x 1 week then maintain Prednisone 10 mg daily
Flu and COVID negative
Follow Sputum culture if able to collect
Cardiology recommended pulmonary consultation, which has been ordered
#Acute on chronic CHF, unspecified type
I/O, daily weights, fluid restriction
Furosemide increased as per cardiology -- continue IV diuresis
Continue Farxiga 10 mg daily
Aldactone added
Echo noted
Card on board (patient follows with Dr. Radha Gong, cardiology at [facility])
-Cardiology recommended pulmonary consultation
#Atrial Fibrillation with RVR
-Cardizem bolus and drip
-Appreciate cardiology
# Elevated troponin suspect non-AK troponin elevation
# CAD status post cardiac stent 03/08/2023
# Non-sustained VT likely related to acute infection
Cont Eliquis 2.5 mg twice daily, atorvastatin 20 mg daily
Troponin peaked at 0.137 -> 0.073
Cardiology on board
# Right upper lung CA, Dx February 2024 unknown type status post radiation x 5 sessions completed May 2024
# Status post radiation pneumonitis approximate 6 to 8 weeks ago treated at [facility] with steroid regimen starting at 50 mg
# status post LEFT pneumonectomy-NON SMALL CELL years ago per patient
prednisone regimen as above
Patient follows with oncology [facility] Dr. Capellan
# Suspect CKD 3B
Likely no SARITA
Creat 1.4 which appears to be at baseline
IV Lasix per card
# Oral thrush with odynophagia concern for esophageal Lily with history of due to chronic steroid/inhalers
Nystatin swish and swallow
Patient denies difficulty swallowing
# Admission Hypotension, resolved
# Essential hypertension
BP stable.
IMPROVEMENT SPECIALIST spironolactone 25 mg daily on hold
Monitor blood pressure with Lasix
# Chronic anemia-normocytic, Hgb 12.8
monitor daily
# Paroxysmal atrial fibrillation
Continue Eliquis 2.5 mg twice daily
Other significant medical issues and plans
# GERD, Continue Pepcid 20 mg daily, omeprazole 40 mg daily
# Gout, Continue allopurinol 200 mg daily
# anxiety, Continue lorazepam 0.5 mg twice daily as needed
# Restless leg syndrome, Continue pramipexole 1.25 mg p.o. at bedtime, Lyrica 50 mg daily
# Chronic back pain, pain meds as needed
# Chronic neuropathy bilateral feet, Continue Lyrica 75 mg p.o. at bedtime, 50 mg p.o. daily
# Class I obesity�BMI 31.8, Affects all aspects of care
DVT prophylaxis - Continue IMPROVEMENT SPECIALIST Eliquis 5 mg twice daily
Full code per patient
Dispo: PT OT eval
Anticipated Discharge: > 48 hours
Subjective/Interval History
-
Date of Service: September 23, 2024
Patient was seen and examined. She denied any new complaints, still with significant SOB with exertion.
Objective Data
-
Labs:
Laboratory Results
09/23/24
06:03
WBC 15.2 H
Hgb 13.1
Hct 42.4
Plt Count 206
Sodium 136
Potassium 4.1
Chloride 88 L
Carbon Dioxide 38 H
BUN 51 H
Creatinine 1.5 H
Glucose 94
Calcium 9.2
Total Bilirubin 1.0
AST 27
ALT 24
Alkaline Phosphatase 95
Vital Signs:
Vital Signs
Temp Pulse Resp BP Pulse Ox
98 F 85 20 137/65 98
09/23/24 12:13 09/23/24 12:13 09/23/24 12:13 09/23/24 12:13 09/23/24 12:13
I&O
09/22/24 09/23/24 09/24/24
06:59 06:59 06:59
Intake Total 1330 / 1330 1040 / 1040
Balance 1330 / 1330 1040 / 1040
--- NOTE | 2024-09-23 16:27 | CON.PUL ---
Consultation
Consultation Request
Date/Time Consultation Requested: 09/23/2024
Date/Time Consultation Performed: 09/23/2024
Requesting Provider: Dr. Ortega
Performing Provider: Dr. Thomas Reynolds
Reason for Consultation: Hypoxemic respiratory failure
Medical History
-
History of Present Illness:
73-year-old woman with past medical history significant for non-small cell carcinoma status post left lung resection, cancer diagnosed in February 2024 status post radiation ending in May 2024, COPD, chronic respiratory failure on 2 L of oxygen,
coronary artery disease, follows at [facility]. She also has history of chronic heart failure with preserved ejection fraction, paroxysmal atrial fibrillation on anticoagulation here complaining of right sided chest pain on admission
09/19/2024. Pain appears to be more pleuritic in nature worse with deep inspiration.
Also complaining of shortness of breath with a nonproductive cough and a sore throat. She was noted to have thrush for about 1 week.
Patient reports being treated for radiation pneumonitis 6 to 8 weeks ago at [facility] she was placed on high-dose of steroids she was tapered down recently to 10 mg of prednisone.
Since steroids she has gained about 20 pounds.
Her Lasix has been adjusted.
She chronically requires 2 L of oxygen.
We were consulted 09/23/2024 to evaluate her for pulmonary reasons for her hypoxemia.
Patient was treated for possible right lower lobe pneumonia with antibiotics.
Past Medical History
Past Medical History: Other (See assessment and plan)
Social History
Tobacco: Former Smoker
Alcohol: None
Drug: None
Personal: Single
Living: Alone
Family History
Family History: Reviewed & Not Pertinent
Allergies / Home Medications
Allergies
Allergy/AdvReac Type Severity Reaction Status Date / Time
amiodarone Allergy kidney and Verified 09/19/24 18:37
liver
functions
elevate
dofetilide Allergy prolonged Verified 09/19/24 18:37
qt
Iodinated Contrast Media Allergy Nausea / Verified 09/19/24 18:37
Vomiting/'pass
out'
levofloxacin [From Levaquin] Allergy Nausea Verified 09/19/24 13:45
Home Medications
�Medication �Instructions �Recorded �Confirmed �Last Taken �Type
allopurinol 100 mg tablet 200 mg PO DAILY Gout 03/30/23 09/19/24 09/19/24 History
atorvastatin 40 mg tablet 20 mg PO DAILY High Cholesterol 03/30/23 09/19/24 09/19/24 History
baclofen 5 mg tablet 5 mg PO BID Muscle Spasms 03/30/23 09/19/24 09/19/24 History
famotidine 20 mg tablet 20 mg PO DAILY Gastrointestinal 03/30/23 09/19/24 09/19/24 History
Issue
ipratropium 0.5 mg-albuterol 3 mg 3 ml inhalation R Q4 PRN 03/30/23 09/19/24 Unknown History
(2.5 mg base)/3 mL nebulization sob/wheezing
soln
lorazepam 0.5 mg tablet 0.5 mg PO BIDPRN PRN anxiety 03/30/23 09/19/24 Unknown History
magnesium oxide 400 mg PO BID Electrolyte Repletion 03/30/23 09/19/24 09/19/24 History
omeprazole 40 mg capsule,delayed 40 mg PO DAILY Gastrointestinal 03/30/23 09/19/24 09/19/24 History
release Issue
ondansetron HCl 4 mg tablet 4 mg PO Q6HPRN PRN nausea/vomitting 03/30/23 09/19/24 Unknown History
Saccharomyces boulardii 250 mg 250 mg PO DAILY 09/19/24 09/19/24 09/19/24 History
capsule (Florastor)
albuterol sulfate 90 mcg/actuation 2 puff inhalation R Q4HPRN PRN 09/19/24 09/19/24 Unknown History
aerosol inhaler wheezing
apixaban 2.5 mg tablet 2.5 mg PO BID 0209/19/24 09/19/24 History
azithromycin 250 mg tablet 250 mg PO MOWEFR 09/19/24 09/19/24 09/19/24 History
benralizumab 30 mg/mL subcutaneous 30 mg SC Q8W 09/19/24 09/19/24 Unknown History
auto-injector (Fasenra Pen)
benzonatate 200 mg capsule 200 mg PO TIDPRN PRN cough 09/19/24 09/19/24 09/19/24 History
calcium 600 mg (as 1 tab PO DAILY 09/19/24 09/19/24 09/19/24 History
carbonate)-vitamin D3 5 mcg (200
unit) tablet
coenzyme Q10 200 mg/gram oral 400 mg PO DAILY 09/19/24 09/19/24 09/19/24 History
powder (H2Q CoQ10)
dapagliflozin propanediol 10 mg 10 mg PO DAILY 09/19/24 09/19/24 09/19/24 History
tablet
fluticasone furoate 200 1 inh inhalation R DAILY 09/19/24 09/19/24 09/19/24 History
mcg-vilanterol 25 mcg/dose
inhalation powder (Breo Ellipta)
fluticasone propionate 50 2 spray intranasal DAILY 09/19/24 09/19/24 09/19/24 History
mcg/actuation nasal
spray,suspension
furosemide 40 mg tablet 40 mg PO Q48H 09/19/24 09/19/24 Unknown History
furosemide 40 mg tablet 80 mg PO Q48H 09/19/24 09/19/24 Unknown History
ipratropium 20 mcg-albuterol 100 1 puff inhalation R Q4HPRN PRN 09/19/24 09/19/24 Unknown History
mcg/actuation mist for inhalation sob/wheezing
(Combivent Respimat)
montelukast 10 mg tablet 10 mg PO DAILY 09/19/24 09/19/24 09/19/24 History
pramipexole 0.25 mg tablet 0.25 mg PO HS 09/19/24 09/19/24 09/18/24 History
pramipexole 1 mg tablet 1 mg PO HS 09/19/24 09/19/24 09/18/24 History
prednisone 10 mg tablet 10 mg PO DAILY 09/19/24 09/19/24 09/19/24 History
pregabalin 25 mg capsule 50 mg PO DAILY 09/19/24 09/19/24 09/19/24 History
pregabalin 25 mg capsule 75 mg PO HS 09/19/24 09/19/24 09/18/24 History
roflumilast 500 mcg tablet 500 mcg PO DAILY 09/19/24 09/19/24 09/19/24 History
spironolactone 25 mg tablet 25 mg PO DAILY 09/19/24 09/19/24 09/19/24 History
sulfamethoxazole 800 1 tab PO MOWEFR 09/19/24 09/19/24 09/19/24 History
mg-trimethoprim 160 mg tablet
suvorexant 10 mg tablet (Belsomra) 10 mg PO QPM 09/19/24 09/19/24 09/18/24 History
tiotropium bromide 2.5 2 puff inhalation R DAILY 09/19/24 09/19/24 09/19/24 History
mcg/actuation mist for inhalation
(Spiriva Respimat)
Review of Systems
-
History Source: Patient
All other systems: Negative unless noted
Vitals / Labs / Diagnostic Testing
Vital Signs
Temp Pulse Resp BP Pulse Ox
98.0 F 80 20 117/58 97
09/23/24 15:41 09/23/24 15:41 09/23/24 15:41 09/23/24 15:41 09/23/24 15:41
Lab Data
09/23/24 06:03
09/23/24 06:03
Microbiology
09/19/24 15:37 Blood/Venous Blood Culture - Preliminary
No Growth in 4 days- Final report to follow
09/21/24 11:50 Sputum Respiratory Culture - Final
Usual Respiratory Perfecto
09/21/24 11:50 Sputum Gram Stain - Final
09/19/24 19:05 Blood/Venous Blood Culture - Preliminary
No Growth in 72 hours- Final report to follow
Diagnostic Testing:
Physical Exam
-
HEENT: Normocephalic
Cardiovascular: S1/S2
GI: Soft
Neurology: Awake, Alert and AO x 3
Skin: Warm
General: Comfortable
Assessment
-
73-year-old woman with complex pulmonary history. Usually follows up at [facility]. Here for shortness of breath, pleuritic type chest pain. Found to have a right and middle lobe new infiltrate. Also proBNP was elevated. Initially
treated for pneumonia and heart failure. I was consulted on 09/23/2024 to evaluate other pulmonary etiologies for her shortness of breath.
Exertional dyspnea,
Acute respiratory insufficiency: Chronic hypoxemic respiratory failure 2 L at baseline.
Chest x-ray on admission: Left lung whiteout. New right lower lobe right middle lobe infiltrate compared to 2022. No other prior recent imaging.
Right-sided pleuritic type chest pain
Acute on chronic heart failure with unknown EF.
proBNP 1750.
Possible right lower lobe pneumonia
Pleuritic type chest pain
Positive troponin-nonischemic
Atrial fibrillation with rapid ventricular response 09/23/2024
Thrush-on tapering dose of steroids
Conditions present prior admission:
Pulmonary history.
COPD/? Asthma overlap with chronic hypoxemic respiratory failure requiring 2 L of oxygen.
Roflumilast/low-dose azithromycin/Spiriva/Breo/Singulair/Fasenra
History of right upper lobe lung cancer diagnosed in February 2024 status post radiation completed May 2024
Post radiation pneumonitis approximately 6 to 8 weeks ago after [facility] on tapering steroids currently at 20 mg. It was slowly decreased from 50 mg.
Bactrim prophylactic dose
Lung cancer status post left pneumonectomy non-small cell area ago per patient.-Follows up with [facility]- Dr. Capellan
Cardiac history:
Coronary artery disease s/p cardiac stent 03/08/2023
Atrial fibrillation on anticoagulation
Orders:
Chronic kidney disease
Chronic anemia
GERD
Gout
Anxiety
Restless leg syndrome
Chronic back pain
Obesity
Echocardiogram 09/22/2024: Report reviewed.
LVEF 60 to 65%. Mild LVH. Mild to moderate AAS. Mild TR.
Assessment and plan:
Symptoms likely multifactorial: Has significant underlying pulmonary problems including status post left pneumonectomy. COPD. Recent radiation pneumonitis still on steroids treated by [facility]
Chest x-ray at least compared to 2022 showed new right lower lobe/right middle lobe infiltrate-unclear whether this is bacterial pneumonia versus residual radiation pneumonitis.
There is no recent imaging to compare.
-
Given immunosuppression/underlying cardiac and pulmonary issues-not unreasonable to treat with full course of antibiotics
Sputum culture with normal respiratory perfecto
MRSA screening negative
Other microbiology negative
She has persistent leukocytosis likely due to steroids.
Afebrile
-
Will favor 7 days of antibiotics with all cultures negative. Can think about narrowing down antibiotics in the next 24 to 48 hours.
-
To better characterize her lung parenchyma I will obtain a CT of the chest. There is nothing present in our system.
Continue steroids she has been tapering down and currently is at 10 mg. At times radiation pneumonitis can worsen if steroids are tapered too quickly.
Will monitor closely
Depending on CAT scan results may need to reach out to her arborist representative at [facility] to compare prior imaging.
-
Currently oxygenation is at 2 L which is baseline
-
Not bronchospastic on exam
Continue inhalers Spiriva/Symbicort
Continue Roflumilast
Okay to hold azithromycin
She is currently on prophylactic Bactrim as she was on tapering doses of prednisone for radiation pneumonitis
Continue to treat thrush
-
Continue diuresis per cardiology and primary team.
I agree that probably there is not much else to diurese at this point. Monitor renal function closely.
-
Unfortunately in her case recovery is going to be very slow given underlying COPD, left pneumonectomy etc.
-
Will continue to follow.
[2024-09-23] MEDS: ELIQUIS 5 MG PO (20:37)
[2024-09-23] MEDS: LYRICA 75 MG PO (21:31)
[2024-09-23] MEDS: MIRAPEX 0.25 MG PO (21:31)
[2024-09-23] MEDS: MIRAPEX, GENERIC 1 MG PO (21:31)
[2024-09-23] MEDS: TESSALON PERLES 200 MG PO (22:28)
[2024-09-24] VITALS (8 sets, daily range): BP systolic 115–135; BP diastolic 56–88; PULSE 97; O2SAT 96; BMI 29.5
[2024-09-24] MEDS: ATIVAN 0.5 MG PO (00:13)
[2024-09-24] MEDS: CARDIZEM 125 IV ×3 (00:44→22:56)
[2024-09-24] MEDS: MAXIPIME 1000 MG IV ×2 (03:30→15:47)
[2024-09-24] MEDS: STERILE WATER FOR INJECTION 10 ML IV ×2 (03:30→15:46)
[2024-09-24 05:59] LABS: Vancomycin Random 10.9 ug/ml
[2024-09-24 06:32] LABS: % Basophils 0.5 % (0-2); % Immature Granulocytes 2.6 % (0-0.5); % Lymphocytes 7.9 % (20.5-51.1); % Monocytes 12.7 % (1.7-9.3); % Neutrophils 76.3 % (42.2-75.2); Absolute Basophils 0.1 10^3/uL (0-0.2); Absolute Immature Granulocytes 0.4 10^3/uL (0-0.05); Absolute Lymphocytes 1.1 10^3/uL (1.2-3.4); Absolute Monocytes 1.8 10^3/uL (0.1-0.6); Absolute Neutrophils 10.7 10^3/uL (1.4-6.5); Hematocrit 42.2 % (37.0-47.0); Hemoglobin 13.6 g/dL (12.0-16.0); Mean Corp Hgb Conc. 32.2 g/dL (33.0-37.0); Mean Corpuscular Hgb 29.4 pg (27.0-31.0); Mean Corpuscular Volume 91.3 fL (81.0-99.0); Mean Platelet Volume 12.8 fL (7.4-10.4); Nucleated Red Blood Cells % 0 %; Platelet Count 239 10^3/uL (130-400); Red Blood Cell Count 4.62 10^6/uL (4.20-5.40); Red Cell Dist. Width 17.7 % (11.5-14.5)
[2024-09-24 06:58] LABS: Blood Urea Nitrogen 63 mg/dl (7-17); Calcium 9.1 mg/dl (8.4-10.2); Carbon Dioxide 36 mmol/L (22-30); Chloride 88 mmol/L (98-107); Estimated Creatinine Clearance 30 ml/min; Glucose 115 mg/dl (70-99); Magnesium 2.6 mg/dl (1.6-2.3); Potassium 3.8 mmol/L (3.5-5.1); Sodium 134 mmol/L (135-145); eGFR 33.42
[2024-09-24] MEDS: SYMBICORT 160/4.5 MCG INHALER 2 PUFF INH ×2 (08:37→20:13)
[2024-09-24] MEDS: SPIRIVA RESPIMAT 2.5 MCG 2 PUFF INH (08:37)
[2024-09-24] MEDS: MYCOSTATIN ORAL SUSPENSION 5 ML PO ×4 (08:39→21:30)
[2024-09-24] MEDS: ELIQUIS 5 MG PO ×2 (08:40→19:42)
[2024-09-24] MEDS: MAG-TAB SR 84 MG PO ×2 (08:40→19:42)
[2024-09-24] MEDS: ZYLOPRIM 200 MG PO (08:40)
[2024-09-24] MEDS: LASIX 80 MG IV (08:40)
[2024-09-24] MEDS: ALDACTONE 12.5 MG PO (08:40)
[2024-09-24] MEDS: SINGULAIR 10 MG PO (08:50)
[2024-09-24] MEDS: PEPCID 20 MG PO (08:50)
[2024-09-24] MEDS: LIORESAL 5 MG PO ×2 (08:50→19:42)
[2024-09-24] MEDS: FARXIGA 10 MG PO (08:50)
[2024-09-24] MEDS: DALIRESP 500 MCG PO (08:51)
[2024-09-24] MEDS: LIPITOR 20 MG PO (08:51)
[2024-09-24] MEDS: PROTONIX 40 MG PO (08:51)
[2024-09-24] MEDS: DELTASONE 10 MG PO (08:51)
[2024-09-24] MEDS: FLORASTOR 250 MG PO (08:53)
[2024-09-24] MEDS: LYRICA 50 MG PO (09:02)
--- NOTE | 2024-09-24 09:03 | PHA.VAN.FU ---
Vancomycin Assessment / Plan
- Assessment
Renal Function: Stable
WBC's are: Trending Down
In the past 24 hrs, patient has been: Afebrile
Concomitant Antimicrobials: cefepime
- Assessment - Therapeutic Drug Monitoring
Random Level: 10.9 - drawn ~23H after previous level of 17.2
Calculated ke: 0.02
Calculated half life (H): 34.6
- Dosing Plan
Dosing by Level: Re-dose today (Vanc 1000mg)
- Monitoring Plan
Random Level: 09/25 06
- Follow Up
Pharmacy will continue to follow.
Vancomycin Follow UP
- -
Patient Age: 73
Patient Sex: Female
Vancomycin Day #: 6
Indication: Pulmonary/Respiratory
Requesting Provider: Elena Abreu
Pertinent Antimicrobial Allergies:
levofloxacin - nausea
Height / Weight:
Height 5 ft 3 in
Actual Weight 75.614 kg
Pertinent Past Medical History: BMI ~31, Lung cancer, CKD III (SCR ~1.6)
- Vital Signs / Lab Results
Temp Pulse Resp BP Pulse Ox
97.9 F 88 16 134/66 100
09/24/24 03:00 09/24/24 08:46 09/24/24 08:46 09/24/24 03:00 09/24/24 08:46
Lab Results - Hematology
09/22/24 09/23/24 09/24/24
07:14 06:03 04:51
WBC 15.0 H 15.2 H 14.0 H
Lab Results - Chemistry
09/22/24 09/23/24 09/24/24
07:14 06:03 04:51
BUN 39 H 51 H 63 H
Creatinine 1.4 H 1.5 H 1.6 H
Estimated Creat Clear 35 32 30
Albumin 3.5 3.9
Microbiology Results
09/19/24 19:05 Blood Culture - Preliminary
Blood/Venous No Growth in 4 days- Final report to follow
09/19/24 15:37 Blood Culture - Preliminary
Blood/Venous No Growth in 4 days- Final report to follow
09/21/24 11:50 Respiratory Culture - Final
Sputum Usual Respiratory Ha[place]
Gram Stain - Final
Therapeutic Drug Monitoring
Random Vancomycin 10.9 ug/ml 09/24/24 04:51
--- NOTE | 2024-09-24 10:57 | W.PN.PUL3 ---
Today's Communication / Plan
-
Continue antibiotics
Discontinue vancomycin today
Consider transition to oral antibiotics in the next 24 hours
Continue inhalers
Nebulizers as needed
Prednisone 10 mg until she sees her pulmonary doctor
Diuretics per cardiology and primary team
Oxygen supplementation at baseline
Hopefully discharge planning soon
Will follow
Assessment
-
73-year-old woman with complex pulmonary history. Usually follows up at [facility]. Here for shortness of breath, pleuritic type chest pain. Found to have a right and middle lobe new infiltrate. Also proBNP was elevated. Initially
treated for pneumonia and heart failure. I was consulted on 09/23/2024 to evaluate other pulmonary etiologies for her shortness of breath.
Exertional dyspnea,
Acute respiratory insufficiency: Chronic hypoxemic respiratory failure 2 L at baseline.
Chest x-ray on admission: Left lung whiteout. New right lower lobe right middle lobe infiltrate compared to 2022. No other prior recent imaging.
Right-sided pleuritic type chest pain
Acute on chronic heart failure with unknown EF.
proBNP 1750.
Possible right lower lobe pneumonia
Pleuritic type chest pain
Positive troponin-nonischemic
Atrial fibrillation with rapid ventricular response 09/23/2024
Thrush-on tapering dose of steroids
Conditions present prior admission:
Pulmonary history.
COPD/? Asthma overlap with chronic hypoxemic respiratory failure requiring 2 L of oxygen.
Roflumilast/low-dose azithromycin/Spiriva/Breo/Singulair/Fasenra
History of right upper lobe lung cancer diagnosed in February 2024 status post radiation completed May 2024
Post radiation pneumonitis approximately 6 to 8 weeks ago after [facility] on tapering steroids currently at 20 mg. It was slowly decreased from 50 mg.
Bactrim prophylactic dose
Lung cancer status post left pneumonectomy non-small cell area ago per patient.-Follows up with [facility]- Dr. Capellan
Cardiac history:
Coronary artery disease s/p cardiac stent 03/08/2023
Atrial fibrillation on anticoagulation
Orders:
Chronic kidney disease
Chronic anemia
GERD
Gout
Anxiety
Restless leg syndrome
Chronic back pain
Obesity
Echocardiogram 09/22/2024: Report reviewed.
LVEF 60 to 65%. Mild LVH. Mild to moderate AAS. Mild TR.
Assessment and plan:
Symptoms likely multifactorial: Has significant underlying pulmonary problems including status post left pneumonectomy, COPD. Recent radiation pneumonitis still on steroids treated by [facility]
Chest x-ray at least compared to 2022 showed new right lower lobe/right middle lobe infiltrate-unclear whether this is bacterial pneumonia versus residual radiation pneumonitis.
There is no recent imaging to compare.
-
Given immunosuppression/underlying cardiac and pulmonary issues-not unreasonable to treat with full course of antibiotics
Sputum culture with normal respiratory perfecto
MRSA screening positive, sputum culture negative.
Other microbiology negative
She has persistent leukocytosis likely due to steroids.
Afebrile
-
Discontinue vancomycin today 09/24/2024
Consider transition to oral antibiotics today or tomorrow and complete total of 7 days.
-
CT chest 09/24/2024: Reviewed, status post left pneumonectomy. Airspace disease and groundglass opacity in the right middle lobe and right lower lobe likely pneumonia. Advanced centrilobular emphysema of the right lung. 9 mm right middle lobe lung
nodule.
-
CAT scan changes not typical for radiation pneumonitis or pulmonary edema. Suspect infectious etiology.
Okay to continue 10 mg of prednisone. Should continue to follow-up with her pulmonary doctor for further directions regarding this. She has been on tapering dose of steroid for several weeks due to radiation pneumonitis.
-
Currently oxygenation is at 2 L which is baseline
Not bronchospastic on exam
Continue inhalers Spiriva/Symbicort
Continue Roflumilast
Okay to hold azithromycin until discharge.
She is currently on prophylactic Bactrim as she was on tapering doses of prednisone for radiation pneumonitis
Continue to treat thrush
-
Likely symptoms will take some time to recover with significant underlying emphysema, immunosuppression which will delay healing from pneumonia.
-
Continue diuresis per cardiology and primary team.
I agree that probably there is not much else to diurese at this point. Monitor renal function closely.
-
Unfortunately in her case recovery is going to be very slow given underlying COPD, left pneumonectomy etc.
-
Will continue to follow.
Follow-up with oncology and pulmonary at [facility] after discharge.
Subjective Data
-
Date of Service:
Date of Service: September 24, 2024
Chief Complaint: Pulmonary Follow Up (Pneumonia/respiratory failure)
Subjective:
Patient offers no new complaints
Denies increased phlegm production
Oxygenation remained at baseline
Review of Systems
Cardiopulmonary: Dyspnea, Dyspnea on Exertion, Cough (n), Sputum Production (n) and Wheezing (n)
GI: Abdominal Pain (n) and Nausea (n)
Objective Data
Data Reviewed
Vital Signs / I&O / Oxygen:
Vital Signs
Temp Pulse Resp BP Pulse Ox
97.5 F 88 16 128/64 100
09/24/24 07:30 09/24/24 08:46 09/24/24 08:46 09/24/24 07:30 09/24/24 08:46
Intake and Output
09/23/24 09/24/24 09/25/24
06:59 06:59 06:59
Intake Total 1040 / 1040 1420 / 1420
Balance 1040 / 1040 1420 / 1420
SaO2 100
Nasal Cannula flow liters per 2
minute
Physical Exam
General: Comfortable
HEENT: Normocephalic
Cardiovascular: S1-S2
Respiratory: Other (decreased breath sounds on right, absent BS on left. )
GI: Soft and Non Distended
Neurology: Awake
Skin: Warm
Labs/Micro/Reports
Lab Data
09/24/24 04:51
09/24/24 04:51
Microbiology
09/19/24 19:05 Blood/Venous Blood Culture - Preliminary
No Growth in 4 days- Final report to follow
09/19/24 15:37 Blood/Venous Blood Culture - Preliminary
No Growth in 4 days- Final report to follow
09/21/24 11:50 Sputum Respiratory Culture - Final
Usual Respiratory Perfecto
09/21/24 11:50 Sputum Gram Stain - Final
--- NOTE | 2024-09-24 11:00 | W.PN.CD ---
Today's Communication / Plan
-
Move to Lasix 40 PO daily
If AFib persists plan cardioversion tomorrow
Impression / Plan
-
73F with paroxysmal atrial fibrillation (on apixaban), coronary artery disease (PCI 02/2023), CKD3a, lung cancer status post left pneumonectomy and XRT to right upper lung, chronic heart failure (type unknown), hypertension, and dyslipidemia who
presented with a chief complaint of shortness of breath.
Primary Policy Analyst: [facility]
Dyspnea:
- May have pulmonary component added to HFpEF
PAF, correct Eliquis to 5 mg BID (current age/weight/Cr), came in on 2.5,[id number] 5 (HF/CAD/HTN/age2/gender)
- AFib with RVR started on 09/23/2023 at 1200 hrs
- Rate much better on IV dilt
- If AFib persists will cardiovert tomorrow (09/25/2024)
Acute on chronic HFpEF,
-Compared to prior admission 03/2023 her weight is up approximately 7 kg
-On Lasix 80 IV BID she had good diuresis but BUN/Cr has bumped => will move to Lasix 40 PO one time daily (at home was 20 one time daily and 2nd dose PRN)
-GDMT: Loop diuretic, SGLT2-I, and now new Aldactone 12.5 daily
-Will need to pick new goal weight, perhaps 76 kg (167 pounds)
Mild to moderate aortic stenosis
CAD, stable, no symptoms, prior PCI/on single agent Eliquis
Abnormal troponin from nonischemic myocardial injury in the setting of acute illness (sepsis), peak troponin on admission, 0.137
-Chest pain-free with a stable EKG and no wall motion on echo
Mixed hyperlipidemia, on statin
Lung cancer, follows at [facility]
-Left pneumonectomy in the setting of an SCC
-Recent XRT to RUL status post radiation pneumonitis, fall 2023
SARTIA on CKD3b - 1.5 Cr today monitor
Subjective:
Feeling much improved, [place] her rapid AFib yesterday
Data 09/22/2024: LVEF 60-65%, mild LVH, mild-mod (peak/mean gradient 21/12 mmHg, JEFFY 1.1 cm2), mild TR est PASP 37
Physical Exam
Vital Signs/Labs
Vital Signs
Temp Pulse Resp BP Pulse Ox
97.5 F 88 16 128/64 100
09/24/24 07:30 09/24/24 08:46 09/24/24 08:46 09/24/24 07:30 09/24/24 08:46
09/23/24 09/24/24 09/25/24
06:59 06:59 06:59
Actual Weight 75.977 kg 75.614 kg
09/24/24 04:51
09/24/24 04:51
Magnesium 2.6 mg/dl (1.6-2.3) H 09/24/24 04:51
09/19/24 09/19/24
13:53 15:37
Wor-H-Zbxgmepntyy Pept 1750 Cancelled
Physical Exam
Constitutional: No acute distress
EENT: Anicteric
Cardiovascular: Rhythm/rate is irregular and S1S2 is normal
Respiratory: Respiratory effort normal and Lungs clear to auscul.
GI: Soft and Distention absent
Neuro/Psych: AO x 3
Data Reviewed
-
Date of Service: September 24, 2024
--- NOTE | 2024-09-24 11:14 | W.PN.HOSP.TC ---
Today's Communication/Plan
-
See plan
Assessment / Plan
Assessment / Plan
Physical Exam
General: Not in acute distress
HEENT: Normocephalic, Atraumatic, Oxygen (2L NC)
Respiratory: Non Labored Respirations and Decreased Breath Sounds; Negative Accessory Resp Muscle Use
Cardiac: Regular Rhythm and S1/S2
GI: Soft, Nontender and Nondistended. Positive bowel sounds.
Musculoskeletal: No Cyanosis. Edema, Right Lower Extremity (mild) and Edema, Left Lower Extremity (mild)
Skin: Warm and Dry
Neuro: Awake, Alert and Oriented
Psych: Calm and Intact Judgement/Insight
Assessment/Plan
73-year-old woman with right sided chest pain at rest 4/10 and with a deep breath 7 out of 10, over the past 2 to 3 days along with a nonproductive cough and sore throat with thrush to her tongue and painful swallowing x 1 week.
Recently treated for radiation pneumonitis, 6 to 8 weeks ago at [place]
placed on high-dose steroids starting with 50 mg x 1 week 40 mg x 1 week 30 mg x 1 week to change to 20 mg on 09/21/2024 then to decrease to 10 mg x 1 week and maintain.
20 pound weight gain on steroids was 158 pounds approximately 6 to 8 weeks ago
Lasix was increased from 40 mg daily to alternating 40 mg and 80 mg every other day.
pain is worse when she takes a deep breath.
Found to have probable sepsis from interstitial PNA
# Significant leucocytosis POA could be 2/2 CAP, lung cancer, and steroid induced
see below
# Probable Sepsis POA with CAP / Right lower lobe pneumonia.
# History of Lung Cancer
# Right sided chest pain improving
# Chronic hypoxic respiratory failure on 2 L nasal cannula oxygen
# Chronic COPD
Noted chronic steroids/maintenance antibiotics, which may explain part of high WBC.
CXR with Moderate new interstitial pneumonia in the right middle lobe and right lower; Left pneumonectomy
Continue IV cefepime, symptoms improving, Vancomycin stopped
Holding FOOD PRODUCTION ASSOCIATE chronic Azithromycin to 500 mg Sunday and Bactrim 1 tab p.o. Sunday
Continue albuterol inhaler, Breo Ellipta, Combivent every 4 as needed
Continue Roflumilast 500 mcg p.o. daily, montelukast 10 mg daily, Fasenra 30 mg SQ every 8 weeks
Was on Prednisone 20 mg daily, now maintained on Prednisone 10 mg daily
Flu and COVID negative
Follow Sputum culture if able to collect
Cardiology recommended pulmonary consultation, which has been ordered
#Acute on chronic CHF, unspecified type
I/O, daily weights, fluid restriction
Furosemide as per cardiology -- IV diuresis transitioned to PO
Continue Farxiga 10 mg daily
Aldactone added
Echo noted
Card on board (patient follows with Dr. Radha Gong, cardiology at [facility])
-Cardiology recommended pulmonary consultation
#Atrial Fibrillation with RVR
-Cardizem bolus and drip
-Appreciate cardiology
-If still in A-Fib tomorrow, plan is for cardioversion
# Paroxysmal atrial fibrillation
Continue Eliquis 2.5 mg twice daily
# Elevated troponin suspect non-[place] troponin elevation
# CAD status post cardiac stent 03/08/2023
# Non-sustained VT likely related to acute infection
Cont Eliquis 5 mg twice daily, atorvastatin 20 mg daily
Troponin peaked at 0.137 -> 0.073
Cardiology on board
# Right upper lung CA, Dx February 2024 unknown type status post radiation x 5 sessions completed May 2024
# Status post radiation pneumonitis approximate 6 to 8 weeks ago treated at [facility] with steroid regimen starting at 50 mg
# status post LEFT pneumonectomy-NON SMALL CELL years ago per patient
prednisone regimen as above
Patient follows with oncology [facility] Dr. Capellan
# Suspect CKD 3B
Likely no SARITA
Creat 1.4 which appears to be at baseline
IV Lasix per card
# Oral thrush with odynophagia concern for esophageal Lily with history of due to chronic steroid/inhalers
Nystatin swish and swallow
Patient denies difficulty swallowing
# Admission Hypotension, resolved
# Essential hypertension
BP stable.
FOOD PRODUCTION ASSOCIATE spironolactone 25 mg daily on hold
Monitor blood pressure with Lasix
# Chronic anemia-normocytic, Hgb 12.8
monitor daily
Other significant medical issues and plans
# GERD, Continue Pepcid 20 mg daily, omeprazole 40 mg daily
# Gout, Continue allopurinol 200 mg daily
# anxiety, Continue lorazepam 0.5 mg twice daily as needed
# Restless leg syndrome, Continue pramipexole 1.25 mg p.o. at bedtime, Lyrica 50 mg daily
# Chronic back pain, pain meds as needed
# Chronic neuropathy bilateral feet, Continue Lyrica 75 mg p.o. at bedtime, 50 mg p.o. daily
# Class I obesity�BMI 31.8, Affects all aspects of care
DVT prophylaxis - Continue FOOD PRODUCTION ASSOCIATE Eliquis 5 mg twice daily
Full code per patient
Dispo: PT OT eval
Anticipated Discharge: > 48 hours
Subjective/Interval History
-
Date of Service: September 24, 2024
Patient was seen and examined. She denied any complaints.
Objective Data
-
Labs:
Laboratory Results
09/24/24
04:51
WBC 14.0 H
Hgb 13.6
Hct 42.2
Plt Count 239
Sodium 134 L
Potassium 3.8
Chloride 88 L
Carbon Dioxide 36 H
BUN 63 H
Creatinine 1.6 H
Glucose 115 H
Calcium 9.1
Vital Signs:
Vital Signs
Temp Pulse Resp BP Pulse Ox
97.5 F 88 16 128/64 100
09/24/24 07:30 09/24/24 08:46 09/24/24 08:46 09/24/24 07:30 09/24/24 08:46
I&O
09/23/24 09/24/24 09/25/24
06:59 06:59 06:59
Intake Total 1040 / 1040 1420 / 1420
Balance 1040 / 1040 1420 / 1420
--- NOTE | 2024-09-24 14:30 | PTCARENOTE ---
09/24- Patient has had multiple 0.5-1second runs of SVTs with HR ranging from 120s-150s. These runs self-resolve, but HR has not come below 105. Patient is asymptomatic, AAOX3, SKin warm/pink/dry with +PulsesX4. Cardizem is still currently at
10cc/hr. EC=091/88. Notified Physician.
--- NOTE | 2024-09-24 16:21 | CM ---
CM reviewed chart, plan remains return home with [facility]. Patient remains on IV antibiotics. CM will continue to follow for all discharge planning needs.
Plan; home with [facility] when medically stable.
[facility]
Report [phone]
[2024-09-24] MEDS: MIRAPEX, GENERIC 1 MG PO (21:29)
[2024-09-24] MEDS: LYRICA 75 MG PO (21:29)
[2024-09-24] MEDS: MIRAPEX 0.25 MG PO (21:30)
[2024-09-25] MEDS: ATIVAN 0.5 MG PO (02:08)
[2024-09-25 03:00] VITALS: BP 132/65
[2024-09-25] MEDS: MAXIPIME 1000 MG IV ×2 (03:02→16:07)
[2024-09-25] MEDS: STERILE WATER FOR INJECTION 10 ML IV ×2 (03:03→16:07)
[2024-09-25 06:00] VITALS: BMI 29.6
[2024-09-25 06:45] LABS: % Basophils 0.2 % (0-2); % Immature Granulocytes 2.4 % (0-0.5); % Lymphocytes 9.4 % (20.5-51.1); % Monocytes 12.5 % (1.7-9.3); % Neutrophils 75.5 % (42.2-75.2); Absolute Immature Granulocytes 0.3 10^3/uL (0-0.05); Absolute Lymphocytes 1.1 10^3/uL (1.2-3.4); Absolute Monocytes 1.5 10^3/uL (0.1-0.6); Absolute Neutrophils 9.2 10^3/uL (1.4-6.5); Hematocrit 38.7 % (37.0-47.0); Hemoglobin 12.1 g/dL (12.0-16.0); Mean Corp Hgb Conc. 31.3 g/dL (33.0-37.0); Mean Corpuscular Volume 92.8 fL (81.0-99.0); Mean Platelet Volume 12.5 fL (7.4-10.4); Nucleated Red Blood Cells % 0 %; Platelet Count 226 10^3/uL (130-400); Red Blood Cell Count 4.17 10^6/uL (4.20-5.40); Red Cell Dist. Width 17.4 % (11.5-14.5); White Blood Cell Count 12.2 10^3/uL (4.8-10.8)
[2024-09-25 07:12] LABS: Blood Urea Nitrogen 64 mg/dl (7-17); Calcium 8.8 mg/dl (8.4-10.2); Carbon Dioxide 35 mmol/L (22-30); Chloride 89 mmol/L (98-107); Estimated Creatinine Clearance 30 ml/min; Glucose 110 mg/dl (70-99); Magnesium 2.7 mg/dl (1.6-2.3); Potassium 3.7 mmol/L (3.5-5.1); Sodium 134 mmol/L (135-145); eGFR 33.42
[2024-09-25 07:35] VITALS: BP 141/78
[2024-09-25] MEDS: SPIRIVA RESPIMAT 2.5 MCG 2 PUFF INH (07:54)
[2024-09-25] MEDS: SYMBICORT 160/4.5 MCG INHALER 2 PUFF INH ×2 (07:55→19:15)
--- NOTE | 2024-09-25 08:11 | W.PN.HOSP.TC ---
Addendum entered and electronically signed by Irving Ortega MD 09/25/24 16:20:
Patient does not want to leave today and wants to be monitored on the PO Diltiazem for another day, I spoke to cardiology who recommended watching for 1 more day. Therefore, I cancelled Discharge Order.
Original Note:
Today's Communication/Plan
-
Discharge today
Assessment / Plan
Assessment / Plan
Physical Exam
General: Not in acute distress
HEENT: Normocephalic, Atraumatic, Oxygen (2L NC)
Respiratory: Non Labored Respirations and Decreased Breath Sounds Bilaterally; Negative Accessory Resp Muscle Use
Cardiac: Regular Rhythm and S1/S2
GI: Soft, Nontender and Nondistended. Positive bowel sounds.
Musculoskeletal: No Cyanosis. Edema, Right Lower Extremity (mild) and Edema, Left Lower Extremity (mild)
Skin: Warm and Dry
Neuro: Awake, Alert and Oriented
Psych: Calm and Intact Judgement/Insight
Assessment/Plan
73-year-old woman with right sided chest pain at rest 4/10 and with a deep breath 7 out of 10, over the past 2 to 3 days along with a nonproductive cough and sore throat with thrush to her tongue and painful swallowing x 1 week.
Recently treated for radiation pneumonitis, 6 to 8 weeks ago at [facility]
placed on high-dose steroids starting with 50 mg x 1 week 40 mg x 1 week 30 mg x 1 week to change to 20 mg on 09/21/2024 then to decrease to 10 mg x 1 week and maintain.
20 pound weight gain on steroids was 158 pounds approximately 6 to 8 weeks ago
Lasix was increased from 40 mg daily to alternating 40 mg and 80 mg every other day.
pain is worse when she takes a deep breath.
Found to have probable sepsis from interstitial PNA
# Significant leucocytosis POA could be 2/2 CAP, lung cancer, and steroid induced
see below
# Probable Sepsis POA with CAP / Right lower lobe pneumonia.
# History of Lung Cancer
# Right sided chest pain improving
# Chronic hypoxic respiratory failure on 2 L nasal cannula oxygen
# Chronic COPD
Noted chronic steroids/maintenance antibiotics, which may explain part of high WBC.
CXR with Moderate new interstitial pneumonia in the right middle lobe and right lower; Left pneumonectomy
Continue IV cefepime, symptoms improving, Vancomycin stopped. On discharge, will do Doxycycline 100 mg BID and Augmentin 875 mg BID for 2 more days.
Holding SALES INSPECTOR chronic Azithromycin to 500 mg Sunday and Bactrim 1 tab p.o. Sunday -- resume after discharge after discussing with outpatient physicians
Continue albuterol inhaler, Breo Ellipta, Combivent every 4 as needed
Continue Roflumilast 500 mcg p.o. daily, montelukast 10 mg daily, Fasenra 30 mg SQ every 8 weeks
Was on Prednisone 20 mg daily, now maintained on Prednisone 10 mg daily
Flu and COVID negative
Follow Sputum culture if able to collect
Cardiology recommended pulmonary consultation, which has been ordered
#Acute on chronic CHF, unspecified type
I/O, daily weights, fluid restriction
Furosemide as per cardiology -- on discharge: Lasix 40 mg PO one time daily
Continue Farxiga 10 mg daily
Aldactone added
Echo noted
Card on board (patient follows with Dr. Radha Gong, cardiology at [facility])
-Cardiology recommended pulmonary consultation
-BMP in 1 week since diuretics changed
#Atrial Fibrillation with RVR
-Cardizem bolus and drip
-On discharge, Diltiazem PO 180 mg BID
-Appreciate cardiology
-Eliquis changed to 5 mg BID
# Paroxysmal atrial fibrillation
Continue Eliquis 5 mg twice daily
# Elevated troponin suspect non-[place] troponin elevation
# CAD status post cardiac stent 03/08/2023
# Non-sustained VT likely related to acute infection
Cont Eliquis 5 mg twice daily, atorvastatin 20 mg daily
Troponin peaked at 0.137 -> 0.073
Cardiology on board
# Right upper lung CA, Dx February 2024 unknown type status post radiation x 5 sessions completed May 2024
# Status post radiation pneumonitis approximate 6 to 8 weeks ago treated at [facility] with steroid regimen starting at 50 mg
# status post LEFT pneumonectomy-NON SMALL CELL years ago per patient
prednisone regimen as above
Patient follows with oncology [facility] Dr. Capellan
# Suspect CKD 3B
Likely no SARITA
Creat 1.4 which appears to be at baseline
Lasix per card
# Oral thrush with odynophagia concern for esophageal Lily with history of due to chronic steroid/inhalers
Nystatin swish and swallow
Patient denies difficulty swallowing
# Admission Hypotension, resolved
# Essential hypertension
BP stable.
SALES INSPECTOR spironolactone 25 mg daily on hold
Monitor blood pressure with Lasix
# Chronic anemia-normocytic, Hgb 12.8
monitor daily
Other significant medical issues and plans
# GERD, Continue Pepcid 20 mg daily, omeprazole 40 mg daily
# Gout, Continue allopurinol 200 mg daily
# anxiety, Continue lorazepam 0.5 mg twice daily as needed
# Restless leg syndrome, Continue pramipexole 1.25 mg p.o. at bedtime, Lyrica 50 mg daily
# Chronic back pain, pain meds as needed
# Chronic neuropathy bilateral feet, Continue Lyrica 75 mg p.o. at bedtime, 50 mg p.o. daily
# Class I obesity�BMI 31.8, Affects all aspects of care
DVT Prophylaxis: Continue SALES INSPECTOR Eliquis 5 mg twice daily
Full code per patient
Dispo: PT OT eval
More than 30 minutes spent in discharge including
Final examination of the patient
Summarizing hospital stay
Instructions for continuing care to all relevant caregivers
Preparation of discharge records, prescriptions, and referral forms
Total time spent (in minutes): 41
Anticipated Discharge: Today
Subjective/Interval History
-
Date of Service: September 25, 2024
Patient was seen and examined. She denied any chest pain or worsening shortness of breath.
Objective Data
-
Labs:
Laboratory Results
09/25/24
05:45
WBC 12.2 H
Hgb 12.1
Hct 38.7
Plt Count 226
Sodium 134 L
Potassium 3.7
Chloride 89 L
Carbon Dioxide 35 H
BUN 64 H
Creatinine 1.6 H
Glucose 110 H
Calcium 8.8
Vital Signs:
Vital Signs
Temp Pulse Resp BP Pulse Ox
97.4 F 92 16 141/78 95
09/25/24 07:35 09/25/24 08:03 09/25/24 08:03 09/25/24 07:35 09/25/24 08:03
I&O
09/24/24 09/25/24 09/26/24
06:59 06:59 06:59
Intake Total 1420 / 1420 780 / 780
Balance 1420 / 1420 780 / 780
--- NOTE | 2024-09-25 08:12 | W.PN.CD ---
Today's Communication / Plan
-
back in sinus
change IV diltiazem to PO
Impression / Plan
-
73F with paroxysmal atrial fibrillation (on apixaban), coronary artery disease (PCI 02/2023), CKD3a, lung cancer status post left pneumonectomy and XRT to right upper lung, chronic heart failure (type unknown), hypertension, and dyslipidemia who
presented with a chief complaint of shortness of breath.
Primary Tax Economist: [facility]
Dyspnea:
- May have pulmonary component in addition to HFpEF
PAF, corrected Eliquis to 5 mg BID (current age/weight/Cr), came in on 2.5,[id number] 5 (HF/CAD/HTN/age2/gender)
- AFib with RVR started on 09/23/2023 at 1200 hrs
- now back in sinus with PAC's
- change IV diltiazem to PO
Acute on chronic HFpEF,
-Compared to prior admission 03/2023 her weight is up approximately 7 kg
-On Lasix 80 IV BID she had good diuresis but BUN/Cr has bumped => will move to Lasix 40 PO one time daily (at home was 20 one time daily and 2nd dose PRN)
-GDMT: Loop diuretic, SGLT2-I, and now new Aldactone 12.5 daily
-Will need to pick new goal weight, perhaps 76 kg (167 pounds)
Mild to moderate aortic stenosis
CAD, stable, no symptoms, prior PCI/on single agent Eliquis
Abnormal troponin from nonischemic myocardial injury in the setting of acute illness (sepsis), peak troponin on admission, 0.137
-Chest pain-free with a stable EKG and no wall motion on echo
Mixed hyperlipidemia, on statin
Lung cancer, follows at [facility]
-Left pneumonectomy in the setting of an SCC
-Recent XRT to RUL status post radiation pneumonitis, fall 2023
SARITA on CKD3b - 1.5 Cr today monitor
Subjective:
No palps
Data 09/22/2024: LVEF 60-65%, mild LVH, mild-mod (peak/mean gradient 21/12 mmHg, JEFFY 1.1 cm2), mild TR est PASP 37
Physical Exam
Vital Signs/Labs
Vital Signs
Temp Pulse Resp BP Pulse Ox
97.4 F 92 16 141/78 95
09/25/24 07:35 09/25/24 08:03 09/25/24 08:03 09/25/24 07:35 09/25/24 08:03
09/24/24 09/25/24 09/26/24
06:59 06:59 06:59
Actual Weight 75.614 kg 75.75 kg
09/25/24 05:45
09/25/24 05:45
Magnesium 2.7 mg/dl (1.6-2.3) H 09/25/24 05:45
09/19/24 09/19/24
13:53 15:37
Lnf-H-Hmwqryvabpi Pept 1750 Cancelled
Physical Exam
Constitutional: No acute distress
EENT: Moist mucous membranes
Cardiovascular: Rhythm & rate is regular, Pedal edema is absent, JVD pressure is normal and Systolic murmur present
Respiratory: Respiratory effort normal and Lungs clear to auscul.
Neuro/Psych: AO x 3
Data Reviewed
-
Date of Service: September 25, 2024
EKG: Other (Tele: SR, PAC's)
Labs: Labs Reviewed by me
[2024-09-25] MEDS: CARDIZEM CD 180 MG PO ×2 (09:12→21:27)
[2024-09-25] MEDS: LIORESAL 5 MG PO ×2 (09:12→21:27)
[2024-09-25] MEDS: PROTONIX 40 MG PO (09:12)
[2024-09-25] MEDS: FLORASTOR 250 MG PO (09:12)
[2024-09-25] MEDS: MYCOSTATIN ORAL SUSPENSION 5 ML PO ×4 (09:12→21:28)
[2024-09-25] MEDS: DALIRESP 500 MCG PO (09:12)
[2024-09-25] MEDS: DELTASONE 10 MG PO (09:13)
[2024-09-25] MEDS: ZYLOPRIM 200 MG PO (09:13)
[2024-09-25] MEDS: FARXIGA 10 MG PO (09:13)
[2024-09-25] MEDS: PEPCID 20 MG PO (09:14)
[2024-09-25] MEDS: MAG-TAB SR 84 MG PO ×2 (09:15→21:27)
[2024-09-25] MEDS: LYRICA 50 MG PO (09:15)
[2024-09-25] MEDS: ELIQUIS 5 MG PO ×2 (09:15→21:28)
[2024-09-25] MEDS: LASIX 40 MG PO (09:15)
[2024-09-25] MEDS: SINGULAIR 10 MG PO (09:15)
[2024-09-25] MEDS: LIPITOR 20 MG PO (09:15)
[2024-09-25] MEDS: ALDACTONE 12.5 MG PO (09:15)
--- NOTE | 2024-09-25 09:48 | VATNOTE ---
Called by staff to check midline, were unable to flush. I was able to flush cathiter without any difficulty with 10ml NSS. Pt. had no complaint.
--- NOTE | 2024-09-25 10:40 | CM ---
Chart reviewed and patient is for home when stable, patient is on 2 liters of oxygen and patient had home oxygen from [facility] prior to admission, plan will be to home with [facility] visiting nurses.
Plan; Home with [facility] Visiting Nurses.
[facility]
Report [phone]
[2024-09-25 11:14] VITALS: BP 124/59
[2024-09-25 15:08] VITALS: BP 119/63
--- NOTE | 2024-09-25 17:01 | W.PN.PUL3 ---
Today's Communication / Plan
-
Continue antibiotics and complete total 7 days
Continue inhalers and nebulizers as needed
Oxygen for mentation at baseline
Not bronchospastic on exam
Low-dose prednisone at baseline.
Continue cardiac management
Discharge planning
Sign off
Assessment
-
73-year-old woman with complex pulmonary history. Usually follows up at [facility]. Here for shortness of breath, pleuritic type chest pain. Found to have a right and middle lobe new infiltrate. Also proBNP was elevated. Initially
treated for pneumonia and heart failure. I was consulted on 09/23/2024 to evaluate other pulmonary etiologies for her shortness of breath.
Exertional dyspnea,
Acute respiratory insufficiency: Chronic hypoxemic respiratory failure 2 L at baseline.
Chest x-ray on admission: Left lung whiteout. New right lower lobe right middle lobe infiltrate compared to 2022. No other prior recent imaging.
Right-sided pleuritic type chest pain
Acute on chronic heart failure with unknown EF.
proBNP 1750.
Possible right lower lobe pneumonia
Pleuritic type chest pain
Positive troponin-nonischemic
Atrial fibrillation with rapid ventricular response 09/23/2024
Thrush-on tapering dose of steroids
Conditions present prior admission:
Pulmonary history.
COPD/? Asthma overlap with chronic hypoxemic respiratory failure requiring 2 L of oxygen.
Roflumilast/low-dose azithromycin/Spiriva/Breo/Singulair/Fasenra
History of right upper lobe lung cancer diagnosed in February 2024 status post radiation completed May 2024
Post radiation pneumonitis approximately 6 to 8 weeks ago [facility]ing steroids currently at 20 mg. It was slowly decreased from 50 mg.
Bactrim prophylactic dose
Lung cancer status post left pneumonectomy non-small cell area ago per patient.-Follows up with [facility]- Dr. Capellan
Cardiac history:
Coronary artery disease s/p cardiac stent 03/08/2023
Atrial fibrillation on anticoagulation
Orders:
Chronic kidney disease
Chronic anemia
GERD
Gout
Anxiety
Restless leg syndrome
Chronic back pain
Obesity
Echocardiogram 09/22/2024: Report reviewed.
LVEF 60 to 65%. Mild LVH. Mild to moderate AAS. Mild TR.
Assessment and plan:
Symptoms likely multifactorial: Has significant underlying pulmonary problems including status post left pneumonectomy, COPD. Recent radiation pneumonitis still on steroids treated by [facility].
Chest x-ray at least compared to 2022 showed new right lower lobe/right middle lobe infiltrate-unclear whether this is bacterial pneumonia versus residual radiation pneumonitis.
There is no recent imaging to compare.
-
Given immunosuppression/underlying cardiac and pulmonary issues-not unreasonable to treat with full course of antibiotics-total of 7 days.
Sputum culture with normal respiratory perfecto
MRSA screening positive, sputum culture negative.
Other microbiology negative
She has persistent leukocytosis likely due to steroids.
Afebrile
-
Discontinue vancomycin 09/24/2024
Transition to oral antibiotics. Defer to primary team.
-
CT chest 09/24/2024: status post left pneumonectomy. Airspace disease and groundglass opacity in the right middle lobe and right lower lobe likely pneumonia. Advanced centrilobular emphysema of the right lung. 9 mm right middle lobe lung nodule.
-
CAT scan changes not typical for radiation pneumonitis or pulmonary edema. Suspect infectious etiology.
Okay to continue 10 mg of prednisone. Should continue to follow-up with her pulmonary doctor for further directions regarding this. She has been on tapering dose of steroid for several weeks due to radiation pneumonitis.
-
Currently oxygenation is at 2 L which is baseline
Not bronchospastic on exam
Continue inhalers Spiriva/Symbicort
Continue Roflumilast
Okay to hold azithromycin until discharge. Restart after full course of antibiotics.
She is currently on prophylactic Bactrim as she was on tapering doses of prednisone for radiation pneumonitis
Continue to treat thrush
-
Likely symptoms will take some time to recover with significant underlying emphysema, immunosuppression which will delay healing from pneumonia.
-
Continue diuresis per cardiology and primary team.
I agree that probably there is not much else to diurese at this point. Monitor renal function closely.
Heart rate control per cardiology and primary team.
-
Unfortunately in her case recovery is going to be very slow given underlying COPD, left pneumonectomy etc.
-
Follow-up with oncology and pulmonary at [facility] after discharge.
-
Agree with discharge planning
Sign off
Subjective Data
-
Date of Service:
Date of Service: September 25, 2024
Chief Complaint: Pulmonary Follow Up (Pneumonia/respiratory failure)
Subjective:
No new overnight events
No new complaints
Objective Data
Data Reviewed
Vital Signs / I&O / Oxygen:
Vital Signs
Temp Pulse Resp BP Pulse Ox
97.6 F 88 20 119/63 98
09/25/24 15:08 09/25/24 15:08 09/25/24 15:08 09/25/24 15:08 09/25/24 15:08
Intake and Output
09/24/24 09/25/24 09/26/24
06:59 06:59 06:59
Intake Total 1420 / 1420 780 / 780
Balance 1420 / 1420 780 / 780
SaO2 98
Nasal Cannula flow liters per 2
minute
Physical Exam
General: Comfortable
HEENT: Normocephalic
Cardiovascular: S1-S2
Respiratory: Other (decreased breath sounds on right, absent BS on left. )
GI: Soft and Non Distended
Neurology: Awake
Skin: Warm
Labs/Micro/Reports
Lab Data
09/25/24 05:45
09/25/24 05:45
Microbiology
09/19/24 19:05 Blood/Venous Blood Culture - Final
No Growth - Final Report
09/19/24 15:37 Blood/Venous Blood Culture - Final
No Growth - Final Report
09/21/24 11:50 Sputum Respiratory Culture - Final
Usual Respiratory Perfecto
09/21/24 11:50 Sputum Gram Stain - Final
[2024-09-25 20:15] VITALS: BP 128/65
[2024-09-25] MEDS: LYRICA 75 MG PO (21:27)
[2024-09-25] MEDS: MIRAPEX, GENERIC 1 MG PO (21:27)
[2024-09-25] MEDS: MIRAPEX 0.25 MG PO (21:28)
[2024-09-25 23:07] VITALS: BP 125/62
[2024-09-26] MEDS: MAXIPIME 1000 MG IV ×2 (03:19→15:39)
[2024-09-26] MEDS: STERILE WATER FOR INJECTION 10 ML IV ×2 (03:20→15:39)
[2024-09-26 03:25] VITALS: BP 119/56
[2024-09-26 06:00] VITALS: BMI 29.3
[2024-09-26 06:41] LABS: % Basophils 0.2 % (0-2); % Immature Granulocytes 3.4 % (0-0.5); % Lymphocytes 7.5 % (20.5-51.1); % Monocytes 10.2 % (1.7-9.3); % Neutrophils 78.7 % (42.2-75.2); Absolute Immature Granulocytes 0.4 10^3/uL (0-0.05); Absolute Monocytes 1.3 10^3/uL (0.1-0.6); Absolute Neutrophils 10.2 10^3/uL (1.4-6.5); Hematocrit 37.6 % (37.0-47.0); Hemoglobin 11.9 g/dL (12.0-16.0); Mean Corp Hgb Conc. 31.6 g/dL (33.0-37.0); Mean Corpuscular Hgb 29.4 pg (27.0-31.0); Mean Corpuscular Volume 92.8 fL (81.0-99.0); Mean Platelet Volume 11.7 fL (7.4-10.4); Nucleated Red Blood Cells % 0 %; Platelet Count 214 10^3/uL (130-400); Red Blood Cell Count 4.05 10^6/uL (4.20-5.40); Red Cell Dist. Width 17.1 % (11.5-14.5)
[2024-09-26 07:05] VITALS: BP 120/54
[2024-09-26 07:42] LABS: Blood Urea Nitrogen 59 mg/dl (7-17); Calcium 8.9 mg/dl (8.4-10.2); Carbon Dioxide 36 mmol/L (22-30); Chloride 92 mmol/L (98-107); Estimated Creatinine Clearance 34 ml/min; Glucose 98 mg/dl (70-99); Potassium 3.8 mmol/L (3.5-5.1); Sodium 134 mmol/L (135-145); eGFR 39.23
[2024-09-26] MEDS: SPIRIVA RESPIMAT 2.5 MCG 2 PUFF INH (08:40)
[2024-09-26] MEDS: SYMBICORT 160/4.5 MCG INHALER 2 PUFF INH (08:40)
[2024-09-26] MEDS: FLORASTOR 250 MG PO (08:42)
[2024-09-26] MEDS: SINGULAIR 10 MG PO (08:42)
[2024-09-26] MEDS: FARXIGA 10 MG PO (08:42)
[2024-09-26] MEDS: MAG-TAB SR 84 MG PO (08:42)
[2024-09-26] MEDS: MYCOSTATIN ORAL SUSPENSION 5 ML PO ×2 (08:42→12:07)
[2024-09-26] MEDS: DALIRESP 500 MCG PO (08:42)
[2024-09-26] MEDS: PROTONIX 40 MG PO (08:43)
[2024-09-26] MEDS: LIORESAL 5 MG PO (08:43)
[2024-09-26] MEDS: ZYLOPRIM 200 MG PO (08:43)
[2024-09-26] MEDS: DELTASONE 10 MG PO (08:43)
[2024-09-26] MEDS: LASIX 40 MG PO (08:43)
[2024-09-26] MEDS: LYRICA 50 MG PO (08:44)
[2024-09-26] MEDS: PEPCID 20 MG PO (08:44)
[2024-09-26] MEDS: CARDIZEM CD 180 MG PO (08:44)
[2024-09-26] MEDS: LIPITOR 20 MG PO (08:44)
[2024-09-26] MEDS: ELIQUIS 5 MG PO (08:44)
[2024-09-26] MEDS: ALDACTONE 12.5 MG PO (08:45)
--- NOTE | 2024-09-26 09:12 | W.PN.HOSP.TC ---
Today's Communication/Plan
-
Discharge today
Assessment / Plan
Assessment / Plan
Physical Exam
General: Not in acute distress
HEENT: Normocephalic, Atraumatic, Oxygen (2L NC)
Respiratory: Non Labored Respirations and Decreased Breath Sounds Bilaterally
Cardiac: Regular Rhythm and S1/S2
GI: Soft, Nontender and Nondistended. Positive bowel sounds.
Musculoskeletal: No Cyanosis. Edema, Right Lower Extremity (mild) and Edema, Left Lower Extremity (mild)
Skin: Warm and Dry
Neuro: Awake, Alert and Oriented
Psych: Calm and Intact Judgement/Insight
Assessment/Plan
73-year-old woman with right sided chest pain at rest 4/10 and with a deep breath 7 out of 10, over the past 2 to 3 days along with a nonproductive cough and sore throat with thrush to her tongue and painful swallowing x 1 week.
Recently treated for radiation pneumonitis, 6 to 8 weeks ago at [facility]
placed on high-dose steroids starting with 50 mg x 1 week 40 mg x 1 week 30 mg x 1 week to change to 20 mg on 09/21/2024 then to decrease to 10 mg x 1 week and maintain.
20 pound weight gain on steroids was 158 pounds approximately 6 to 8 weeks ago
Lasix was increased from 40 mg daily to alternating 40 mg and 80 mg every other day.
pain is worse when she takes a deep breath.
Found to have probable sepsis from interstitial PNA
# Significant leucocytosis POA could be 2/2 CAP, lung cancer, and steroid induced
see below
# Probable Sepsis POA with CAP / Right lower lobe pneumonia.
# History of Lung Cancer
# Right sided chest pain improving
# Chronic hypoxic respiratory failure on 2 L nasal cannula oxygen
# Chronic COPD
Noted chronic steroids/maintenance antibiotics, which may explain part of high WBC.
CXR with Moderate new interstitial pneumonia in the right middle lobe and right lower; Left pneumonectomy
Continue IV cefepime, symptoms improving, Vancomycin stopped. On discharge, will do Doxycycline 100 mg BID and Augmentin 875 mg BID for 1 more day.
Holding CONSULTING ANALYST chronic Azithromycin to 500 mg Sunday and Bactrim 1 tab p.o. Sunday -- resume after discharge after discussing with outpatient physicians
Continue albuterol inhaler, Breo Ellipta, Combivent every 4 as needed
Continue Roflumilast 500 mcg p.o. daily, montelukast 10 mg daily, Fasenra 30 mg SQ every 8 weeks
Was on Prednisone 20 mg daily, now maintained on Prednisone 10 mg daily
Flu and COVID negative
Follow Sputum culture if able to collect
Cardiology recommended pulmonary consultation, which was ordered
#Acute on chronic CHF, unspecified type
I/O, daily weights, fluid restriction
Furosemide as per cardiology -- on discharge: Lasix 40 mg PO one time daily
Continue Farxiga 10 mg daily
Aldactone added
Echo noted
Card on board (patient follows with Dr. Radha Gong, cardiology at [facility])
-Cardiology recommended pulmonary consultation
-BMP in 1 week since diuretics changed
#Atrial Fibrillation with RVR
-Cardizem bolus and drip
-On discharge, Diltiazem PO 180 mg BID
-Appreciate cardiology
-Eliquis changed to 5 mg BID
# Paroxysmal atrial fibrillation
Continue Eliquis 5 mg twice daily
# Elevated troponin suspect non-PR troponin elevation
# CAD status post cardiac stent 03/08/2023
# Non-sustained VT likely related to acute infection
Cont Eliquis 5 mg twice daily, atorvastatin 20 mg daily
Troponin peaked at 0.137 -> 0.073
Cardiology on board
# Right upper lung CA, Dx February 2024 unknown type status post radiation x 5 sessions completed May 2024
# Status post radiation pneumonitis approximate 6 to 8 weeks ago treated at [facility] [place] with steroid regimen starting at 50 mg
# status post LEFT pneumonectomy-NON SMALL CELL years ago per patient
prednisone regimen as above
Patient follows with oncology [facility] Dr. Capellan
# Suspect CKD 3B
Likely no SARITA
Creat 1.4 which appears to be at baseline
Lasix per card
# Oral thrush with odynophagia concern for esophageal Lily with history of due to chronic steroid/inhalers
Nystatin swish and swallow
Patient denies difficulty swallowing
# Admission Hypotension, resolved
# Essential hypertension
BP stable.
CONSULTING ANALYST spironolactone 25 mg daily on hold
Monitor blood pressure with Lasix
# Chronic anemia-normocytic, Hgb 12.8
monitor daily
Other significant medical issues and plans
# GERD, Continue Pepcid 20 mg daily, omeprazole 40 mg daily
# Gout, Continue allopurinol 200 mg daily
# anxiety, Continue lorazepam 0.5 mg twice daily as needed
# Restless leg syndrome, Continue pramipexole 1.25 mg p.o. at bedtime, Lyrica 50 mg daily
# Chronic back pain, pain meds as needed
# Chronic neuropathy bilateral feet, Continue Lyrica 75 mg p.o. at bedtime, 50 mg p.o. daily
# Class I obesity�BMI 31.8, Affects all aspects of care
DVT Prophylaxis: Continue CONSULTING ANALYST Eliquis 5 mg twice daily
Full code per patient
Dispo: PT OT eval
More than 30 minutes spent in discharge including
Final examination of the patient
Summarizing hospital stay
Instructions for continuing care to all relevant caregivers
Preparation of discharge records, prescriptions, and referral forms
Total time spent (in minutes): 38
Anticipated Discharge: Today
Subjective/Interval History
-
Date of Service: September 26, 2024
Patient was seen and examined. She denied any chest pain, palpitations, shortness of breath or any other complaints. She stated that she feels ready to go home today.
Objective Data
-
Labs:
Laboratory Results
09/26/24
06:26
WBC 13.0 H
Hgb 11.9 L
Hct 37.6
Plt Count 214
Sodium 134 L
Potassium 3.8
Chloride 92 L
Carbon Dioxide 36 H
BUN 59 H
Creatinine 1.4 H
Glucose 98
Calcium 8.9
Vital Signs:
Vital Signs
Temp Pulse Resp BP Pulse Ox
97.5 F 67 20 120/54 97
09/26/24 07:05 09/26/24 07:05 09/26/24 07:05 09/26/24 08:43 09/26/24 07:05
I&O
09/25/24 09/26/24 09/27/24
06:59 06:59 06:59
Intake Total 780 / 780 960 / 960
Balance 780 / 780 960 / 960
--- NOTE | 2024-09-26 11:05 | CM ---
Patient to return to home with home care from [facility].
[facility]
Report [phone]
[2024-09-26 11:15] VITALS: BP 124/64
--- NOTE | 2024-09-26 12:09 | VATNOTE ---
During routine assessment, monitored site of cardizem infiltrate: bruising noted with a small firm bump, pt describes as 'a little sore.' Offered heat application, pt declined.
[2024-09-26 14:16] VITALS: BP 124/64; O2SAT 98
--- NOTE | 2024-09-26 14:33 | W.DCSUMMARY ---
Discharge Summary
Discharge Data
Date of Admission: 09/19/24
Date of Discharge: 09/29/24
Total time spent discharging patient (in min): 38
-
Pending Results: No
Hospital Course
73-year-old female with past medical history of lung cancer status post left pneumonectomy status post radiation, radiation pneumonitis on prednisone, COPD on chronic preventative Bactrim/azithromycin, chronic respiratory insufficiency on 2 L
oxygen, CAD status post stent, CHF, orthostatic hypotension, atrial fibrillation on Eliquis, gout, anxiety, restless leg syndrome, chronic back pain, GERD and prior esophageal Lily, presented with right-sided chest pain with inspiration and
shortness of breath with dry cough, sore throat and lower extremity swelling.
Patient was treated for thrush. Chest x-ray suggested pneumonia. Patient was started on broad spectrum antibiotics for sepsis and pneumonia. Patient was found to be MRSA positive and continued on Vancomycin. Cardiology was consulted and patient
received intravenous Lasix for heart failure with preserved ejection fraction. Patient's Eliquis was increased from 2.5 mg BID to 5 mg BID for her atrial fibrillation as the dose increase was determined to be appropriate. Patient had an
echocardiogram which showed as per cardiology, 'Normal biventricular size and systolic function without regional wall motion abnormality. LVEF 60-65%. Mild LVH. Diastolic function indeterminate. Mild to moderate aortic stenosis (peak/mean gradient
21/12 mmHg, JEFFY 1.1 cm2). Mild tricuspid regurgitation with top normal pulmonary artery pressure (PASP 37 mmHg).'
Patient developed atrial fibrillation with rapid ventricular response, and Cardizem drip was started. Cardiology noted patient's allergies/intolerances to both Amiodarone and Dofetilide.
Cardiology recommended pulmonary consultation. CT Chest was ordered, and it showed status post left pneumonectomy. Airspace disease and groundglass opacity in the right middle lobe and right lower lobe likely pneumonia. Advanced centrilobular
emphysema of the right lung. 9 mm right middle lobe lung nodule. Pulmonary noted that patient's CT scan changes were not typical for radiation pneumonitis or pulmonary edema, but rather suggestive of infectious etiology, but mentioned it was okay
continue Prednisone, and that patient would need to continue to follow-up with her pulmonary physician for further directions regarding this.
Discharge Plan
-
Patient Disposition: Home with Home Care
Discharge Diagnosis/Procedures: # Exertional Dyspnea
# Right-sided pleuritic type chest pain
# Leukocytosis suspected secondary to steroids
# Sepsis
# Possible right lower lobe pneumonia
# History of Lung Cancer
# Right sided chest pain improving
# Chronic hypoxic respiratory failure on 2 L nasal cannula oxygen
# Chronic COPD
# Chronic hypoxemic respiratory failure 2 L at baseline
# Acute on Chronic HFpEF
# Atrial Fibrillation with rapid ventricular response
# Paroxysmal atrial fibrillation
# Elevated troponin suspect non-[place] troponin elevation
# CAD status post prior PCI/on single agent Eliquis
# Non-sustained VT likely related to acute infection
#History of right upper lobe lung cancer diagnosed in February 2024 status post radiation completed May 2024
# Post radiation pneumonitis
# Right upper lung CA, Dx February 2024 unknown type status post radiation x 5 sessions completed May 2024
# Status post radiation pneumonitis approximate 6 to 8 weeks ago treated at [facility] [address] with steroid regimen starting at 50 mg
# Status post LEFT pneumonectomy-NON SMALL CELL years ago per patient
# Suspected CKD 3B
# Oral thrush with odynophagia concern for esophageal Lily with history of due to chronic steroid/inhalers
# Admission Hypotension, resolved
# Essential hypertension
# Chronic anemia
# GERD
# Gout
# Anxiety
# Restless leg syndrome
# Chronic back pain
# Chronic neuropathy bilateral feet
# Obesity
# Mild to moderate aortic stenosis
# Abnormal troponin from non-ischemic myocardial injury in the setting of acute illness
(sepsis), peak troponin on admission, 0.137
# Mixed hyperlipidemia, on statin
# Lung cancer, follows at [facility] status post left pneumonectomy in the setting of an SCC and recent XRT to [facility] status post radiation pneumonitis, fall 2024
CT Chest Findings (as per radiologist's report):
'1. Post left pneumonectomy.
2. Areas of mixed airspace and groundglass opacity in the right middle lobe and right lower lobe as above most likely related to pneumonia.
3. Advanced changes of centrilobular emphysema with multifocal subsegmental atelectatic change/scarring.
4. Approximately 9 mm nodule in the right middle lobe as above. This could potentially be related to the acute process, indeterminate. Recommend follow-up CT chest after resolution of acute illness.
5. Coronary and aortic atherosclerosis.'
Condition: Fair
Diet: Low Sodium
Activity: As tolerated
Other Services: VN
Specialty Instructions: Weigh Daily- Call MD for wt gain/loss 3 lbs overnight/5 lbs in 1 week
Activity Restrictions/Additional Instructions:
Azithromycin and Sulfamethoxazole-Trimethoprim on hold until outpatient follow-up (show your hospital discharge medication list to your outpatient doctors and ask them when you should resume Azithromycin and Sulfamethoxazole-Trimethoprim)
ASK YOUR OUTPATIENT DOCTORS WHETHER OR NOT IT IS SAFE TO RESUME BACTRIM SINCE YOU HAVE BEEN ON SPIRONOLACTONE FOR YOUR HEART FAILURE -- WHEN SPIRONOLACTONE AND BACTRIM ARE TAKEN TOGETHER IT CAN CAUSE HIGH POTASSIUM
ELIQUIS HAS BEEN INCREASED TO 5 MG BID
ASK YOUR OUTPATIENT DOCTORS WHEN YOU SHOULD RESUME YOUR AZITHROMYCIN (YOU WERE ON OTHER ANTIBIOTICS DURING YOUR HOSPITAL STAY)
Instructions: *PCP/Other Manager Of Change Heart Failure Instructions
Referrals:
Dre Jon MD [Family Provider] -
Additional Discharge Medication Instructions: Spironolactone has been decreased to 12.5 mg daily.
Furosemide has been changed to a total of 40 mg daily.
Eliquis has been increased to 5 mg BID.
Diltiazem is a new medication: 180 mg BID.
Amoxicillin-Clavulanate and Doxycycline are new medications -- you can stop taking these antibiotics after September 27, 2024.
Nystatin is a new medication for thrush.
Azithromycin and Sulfamethoxazole-Trimethoprim on hold until outpatient follow-up (show your hospital discharge medication list to your outpatient doctors and ask them when you should resume Azithromycin and Sulfamethoxazole-Trimethoprim)
Ondansetron discontinued to avoid QTc prolongation.
Prescriptions:
New
spironolactone 25 mg Tablet
12.5 mg PO DAILY Qty: 30 1RF
Eliquis 5 mg Tablet
5 mg PO BID Qty: 60 1RF
diltiazem HCl 180 mg Capsule,Extended Release 24hr
180 mg PO BID Qty: 60 1RF
furosemide 40 mg Tablet
40 mg PO DAILY Qty: 30 1RF
amoxicillin-pot clavulanate 500-125 mg tablet
1 tab PO Q12H 2 Days Qty: 4 0RF
doxycycline hyclate 100 mg tablet
100 mg PO BID 2 Days Qty: 4 0RF
nystatin 100,000 unit/mL Suspension
5 ml PO QID 3 Days Qty: 60 0RF
Continued
atorvastatin 40 mg Tablet
20 mg PO DAILY
ipratropium-albuterol 0.5 mg-3 mg(2.5 mg base)/3 mL Solution For Nebulization
3 ml INHALATION R Q4 PRN (Reason: sob/wheezing)
allopurinol 100 mg Tablet
200 mg PO DAILY
omeprazole 40 mg Capsule,Delayed Release(Dr/Ec)
40 mg PO DAILY
famotidine 20 mg Tablet
20 mg PO DAILY
lorazepam 0.5 mg Tablet
0.5 mg PO BIDPRN PRN (Reason: anxiety)
Patient Comments:
last filled 02/15/2024, 60 tabs
baclofen 5 mg Tablet
5 mg PO BID
magnesium oxide 400 mg magnesium Tablet
400 mg PO BID
pramipexole 0.25 mg tablet
0.25 mg PO HS
Fasenra Pen 30 mg/mL auto-injector
30 mg SC Q8W
pramipexole 1 mg Tablet
1 mg PO HS
prednisone 10 mg Tablet
10 mg PO DAILY
benzonatate 200 mg Capsule
200 mg PO TIDPRN PRN (Reason: cough)
calcium carbonate-vitamin D3 600 mg-5 mcg (200 unit) Tablet
1 tab PO DAILY
montelukast 10 mg Tablet
10 mg PO DAILY
albuterol sulfate 90 mcg/actuation Hfa Aerosol Inhaler
2 puff INHALATION R Q4HPRN PRN (Reason: wheezing)
fluticasone propionate 50 mcg/actuation [place],Suspension
2 spray INTRANASAL DAILY
Saccharomyces boulardii [Florastor] 250 mg Capsule
250 mg PO DAILY
pregabalin 25 mg Capsule
50 mg PO DAILY
pregabalin 25 mg Capsule
75 mg PO HS
H2Q CoQ10 200 mg/gram Powder
400 mg PO DAILY
Spiriva Respimat 2.5 mcg/actuation Mist
2 puff INHALATION R DAILY
dapagliflozin propanediol 10 mg Tablet
10 mg PO DAILY
Belsomra 10 mg Tablet
10 mg PO QPM
Rx Instructions:
can increase to 20mg nightly if ineffective after 5 days
fluticasone furoate-vilanterol [Breo Ellipta] 200-25 mcg/dose Blister With Device
1 inh INHALATION R DAILY
Combivent Respimat 20-100 mcg/actuation Mist
1 puff INHALATION R Q4HPRN PRN (Reason: sob/wheezing)
roflumilast 500 mcg Tablet
500 mcg PO DAILY
Held
azithromycin 250 mg Tablet
250 mg PO MOWEFR
Hold Instructions: Resume on 10/03/24. ASK YOUR OUTPATIENT DOCTORS WHEN YOU SHOULD RESUME THIS MEDICATION
sulfamethoxazole-trimethoprim 800-160 mg Tablet
1 tab PO MOWEFR
Hold Instructions: Resume on 10/08/24. ASK YOUR OUTPATIENT DOCTORS WHEN YOU SHOULD RESUME THIS MEDICATION (YOU ARE ALSO ON SPIRONOLACTONE WHICH CAN INCREASE POTASSIUM WITH THIS MEDICATION)
Discontinued
ondansetron HCl 4 mg Tablet
4 mg PO Q6HPRN PRN (Reason: nausea/vomitting)
furosemide 40 mg Tablet
80 mg PO Q48H
spironolactone 25 mg Tablet
25 mg PO DAILY
apixaban 2.5 mg Tablet
2.5 mg PO BID
furosemide 40 mg tablet
40 mg PO Q48H
Discharge Orders:
Discharge Patient (As Directed); Ordered 09/26/24
Ordered By: Irving Ortega
Discharge Date and Time
Discharge Date/Time: 09/26/24 18:21
Print Language: ICELANDIC
[2024-09-26 15:36] VITALS: BP 117/58
[2024-09-26] MEDS: ATIVAN 0.5 MG PO (15:56)
--- NOTE | 2024-09-29 10:00 | W.HF.CON ---
Heart Failure
- LV Function
Left ventricular function study result: LV Ejection fraction >/= 50%
Ejection Fraction Percentage: 60-65
- ARNI
Patient already on ARNI: No
Heart Failure ARNI Not Indicated: LV Ejection Fraction >/= 40%
- ACEI/ARB
Patient already on ACEI/ARB: No
Heart Failure ACEI/ARB Not Indicated: LV Ejection Fraction > 40%
- Beta Nancy
Patient already on Evidence Based Beta Nancy: No
Heart Failure Evidence Based Beta Nancy Not Indicated: LV Ejection Fraction > 40%
- Mineralocorticord Receptor Antagonist
Patient already on MRA: Yes
- SGLT-2 Inhibitor
Patient already on SGLT-2 Inhibitor: Yes
- Afib Anticoagulation
Patient already on Anticoagulation for Afib: Yes
- NYHA CHF Classification
NYHA CHF Classification Level: Class III - Symptoms w/ min exertion, interferes w/ nml daily activity
- ACC/AHA Stage
ACC/AHA Stage: Stage C: Symptomatic Heart Failure
== END 2024-09-26 18:21 | disposition home health service (06) | DRG 871 ==
LOC: 4 WEST ACU 19:02
PROVIDERS: Clinical Nurse Specialist Family Health; Emergency Medicine; Internal Medicine; Internal Medicine Cardiovascular Disease; Physician Assistant; ADMITTING PHYSICIAN Hospitalist; ATTENDING PHYSICIAN Hospitalist; CONSULT PHYSICIAN Internal Medicine Cardiovascular Disease; CONSULT PHYSICIAN Internal Medicine Critical Care Medicine; EMERGENCY PHYSICIAN Emergency Medicine; FAMILY PHYSICIAN Internal Medicine
DX: A41.89 Other specified sepsis (principal); J18.9 Pneumonia, unspecified organism; J44.0 Chronic obstructive pulmonary disease with (acute) lower respiratory infection; J96.11 Chronic respiratory failure with hypoxia; N17.9 Acute kidney failure, unspecified; B37.0 Candidal stomatitis; I50.32 Chronic diastolic (congestive) heart failure; I13.0 Hypertensive heart and chronic kidney disease with heart failure and stage 1 through stage 4 chronic kidney disease, or unspecified chronic kidney disease; I5A Non-ischemic myocardial injury (non-traumatic); N18.32 Chronic kidney disease, stage 3b; I48.0 Paroxysmal atrial fibrillation; I25.10 Atherosclerotic heart disease of native coronary artery without angina pectoris; Z79.52 Long term (current) use of systemic steroids; Z85.118 Personal history of other malignant neoplasm of bronchus and lung; Z92.3 Personal history of irradiation; Z95.5 Presence of coronary angioplasty implant and graft
CPT/HCPCS: 71045; 71250; 80048; 80053; 80202; 82607; 83605; 83735; 83880; 84484; 85025; 86803; 87040; 87070; 87205; 87502; 87641; 87811; 93005; 93306; 94640; 96365; 96366; 96375; 97116; 97163; 97167; 97530; 99285